=== PATIENT | male | born 1960 | race Caucasian/White ===

== ENCOUNTER 2018-03-11 06:49 | Day surgery (SDC) | payer BC ==
[2018-03-11] MEDS ORDERED: Lactated Ringers 1,000 ML IV SCH (07:00)
[2018-03-11] MEDS ORDERED: Propofol 200 MG/20 ML SDV ONE (07:49)
[2018-03-11] MEDS ORDERED: fentaNYL 100 MCG/2 ML SDV ONE (07:49)
[2018-03-11] MEDS ORDERED: Midazolam 1 MG/ML 2 ML SDV ONE (07:49)
--- NOTE | 2018-03-14 07:36 | OR ---
DATE OF PROCEDURE: 03/11/2018 PREOPERATIVE DIAGNOSIS: Colon cancer screening. POSTOPERATIVE DIAGNOSIS: Distal rectal polyp. PROCEDURE PERFORMED: Colonoscopy to the cecum with biopsy and then snare cautery polypectomy of distal rectal polyp. SURGEON: Mukund Mata MD. ANESTHESIA: IV anesthesia with monitored anesthesia care. INDICATION: This 57-year-old white male is referred for a colonoscopy for colon cancer screening. He has never had a colonoscopic exam. He does admit to having some blood in his stool. I counseled him for a colonoscopy with possible biopsy and/or polypectomy, including risks and alternatives, and he gave his informed consent to proceed. DESCRIPTION OF PROCEDURE: The patient was placed in the left lateral decubitus position. IV anesthesia was administered by the Anesthesia Service. Time-out was held. A rectal exam was performed, where a mobile mass was palpable. The flexible video Olympus colonoscope was introduced through his anus, up his rectum, out his colon all the way to the cecum. Once the cecum was reached, the scope was slowly withdrawn examining the mucosa throughout. No mucosal abnormalities were noted. The scope was retroflexed in the rectum with the distal rectum showing this mass in the distal rectum right at the anus. This was removed using the snare and initially we biopsied it, and then the snare was passed about its base to take it out in total of 3 pieces. Electrocautery was applied as we amputated the polyp. The scope was straightened. We removed 2 of the pieces from the rectum once they were amputated by aspirating them up on the endoscope and removed the endoscope with the polyp retrieved from the endoscope. The third segment was removed by aspirating up through the scope and capturing it in a polyp trap. The scope was then removed. He tolerated the procedure well. Mukund Mata MD /[id number]
== END 2018-03-11 10:15 | disposition home or self-care (01) ==
LOC: JP.SDS 06:49
PROVIDERS: ATTEND Surgery
DX: C19 Malignant neoplasm of rectosigmoid junction (principal); I10 Essential (primary) hypertension; E11.9 Type 2 diabetes mellitus without complications; J45.909 Unspecified asthma, uncomplicated; Z88.0 Allergy status to penicillin
CPT/HCPCS: 45385; 88305; 88341; 88342; J2250; J2704; J3010; J7120

== ENCOUNTER 2019-02-07 02:33 | Emergency (ER) | payer BC ==
--- NOTE | 2019-02-07 02:59 | EDM.PDOC ---
ED HPI GENERAL MEDICAL PROBLEM - General Chief Complaint: Abdominal Pain Stated Complaint: ABD PAIN Time Seen by Provider: 02/07/19 02:53 Source of Information: Reports: Patient History Limitations: Reports: No Limitations - History of Present Illness INITIAL COMMENTS - FREE TEXT/NARRATIVE: 58-year-old male in with left lower quadrant pain for the past 2 days, was supposed to see the surgeon yesterday but the surgeon canceled his appointment. There was suspicious of a hernia. No fevers or chills. He has a history of colorectal cancer which according to the patient was removed and colonoscopy. Apparently he is getting IV antibiotics for osteomyelitis at this time and no chemotherapy. No workup was done on this pain. It radiates around to his back on the left side. No urinary symptoms. Onset: Gradual Duration: Day(s): (Worse the last 2-3 days) Location: Reports: Abdomen Worsens with: Reports: Movement Associated Symptoms: Reports: Shortness of Breath (Intermittent shortness of breath). Denies: Cough LLQ Pain Score (Numeric/FACES): 9 - Related Data Allergies Allergy/AdvReac Type Severity Reaction Status Date / Time Penicillins Allergy Other Verified 02/07/19 02:41 Home Meds: Home Meds Albuterol [Ventolin HFA] 2 puff INH Q4HR PRN 03/09/18 [History] Bee Pollen 550 mg PO DAILY 03/09/18 [History] Multivitamin [Multi-Vitamin Daily] 1 each PO DAILY 03/09/18 [History] metFORMIN HCl [Metformin HCl] 1,000 mg PO BID 03/09/18 [History] Fexofenadine HCl 180 mg PO DAILY 03/11/18 [History] Apixaban [Eliquis] 5 mg PO BID 01/24/19 [History] Cholecalciferol (Vitamin D3) [Vitamin D3] 10,000 unit PO DAILY 01/24/19 [History ] Gentamicin [Garamycin 0.3% Ophth Soln] 1 drop EYEBOTH Q4HR 01/24/19 [History] Insulin Glarg,Human.Rec.Analog [Lantus Solostar] 10 unit SQ BEDTIME 01/24/19 [ History] Loperamide [Imodium AD] 2 mg PO ASDIRECTED 01/24/19 [History] Magnesium Oxide 500 mg PO TID 01/24/19 [History] Mometasone/Formoterol [Dulera 200 MCG/5 MCG] 2 puff INH BID 01/24/19 [History] Prochlorperazine Maleate [Compazine] 10 mg PO QID PRN 01/24/19 [History] traMADol [Ultram] 50 mg PO Q6HR PRN 01/24/19 [History] Past Medical History HEENT History: Reports: Allergic Rhinitis Cardiovascular History: Reports: Blood Clots/VTE/DVT, Hypertension Respiratory History: Reports: Asthma Gastrointestinal History: Reports: Other (See Below) Other Gastrointestinal History: severe protein calorie malnutrition. 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 tendon rupture, nontraumatic, extensor Neurological History: Reports: Headaches, Chronic Endocrine/Metabolic History: Reports: Diabetes, Type II, Other (See Below) Other Endocrine/Metabolic History: dyslipidemia Hematologic History: Reports: Anticoagulation Therapy Immunologic History: Reports: Other (See Below) Other Immunologic History: chemo pt Oncologic (Cancer) History: Reports: Colon - Infectious Disease History Infectious Disease History: Reports: Other (See Below) Other Infectious Disease History: MSSA of right middle finger, amputated - Past Surgical History HEENT Surgical History: Reports: None Cardiovascular Surgical History: Reports: None Respiratory Surgical History: Reports: None Neurological Surgical History: Reports: None Musculoskeletal Surgical History: Reports: Amputation, Arthroscopic Knee, Other (See Below) Other Musculoskeletal Surgeries/Procedures:: right middle finger amputation Social & Family History - Tobacco Use Smoking Status *Q: Former Smoker Used Tobacco, but Quit: Yes Month/Year Tobacco Last Used: 2003 - Caffeine Use Caffeine Use: Reports: Soda - Alcohol Use Days Per Week of Alcohol Use: 5 Number of Drinks Per Day: 2 Total Drinks Per Week: 10 - Recreational Drug Use Recreational Drug Use: No ED ROS GENERAL - Review of Systems Review Of Systems: See Below Constitutional: Reports: Malaise. Denies: Fever, Chills HEENT: Reports: No Symptoms Respiratory: Reports: Shortness of Breath Cardiovascular: Denies: Chest Pain GI/Abdominal: Reports: Abdominal Pain, Nausea. Denies: Vomiting : Reports: No Symptoms Skin: Reports: No Symptoms Neurological: Reports: No Symptoms ED EXAM, GI/ABD - Physical Exam Exam: See Below Exam Limited By: No Limitations General Appearance: Alert, No Apparent Distress Eyes: Bilateral: Normal Appearance (No jaundice) Head: Atraumatic Respiratory/Chest: No Respiratory Distress Cardiovascular: Regular Rate, Rhythm GI/Abdominal Exam: Soft, Tender (Tender in the left lower quadrant but no significant guarding or rebound) Extremities: Other (Middle finger on his right hand is bandaged, recent surgery for osteomyelitis and undergoing IV antibiotics). No: Pedal Edema Neurological: Alert, Oriented Course - Vital Signs Last Recorded V/S: Last Vital Signs Temp 97.3 F 02/07/19 02:47 Pulse 98 02/07/19 06:18 Resp 15 02/07/19 06:18 BP 169/104 H 02/07/19 06:18 Pulse Ox 98 02/07/19 06:18 - Orders/Labs/Meds Labs: Laboratory Tests 02/07/19 02/07/19 Range/Units 03:14 03:14 WBC 4.9 (4.5-11.0) K/uL RBC 3.57 L (4.30-5.90) M/uL Hgb 10.2 L (12.0-15.0) g/dL Hct 33.0 L (40.0-54.0) % MCV 92 (80-98) fL MCH 29 (27-31) pg MCHC 31 L (32-36) % Plt Count 144 L (150-400) K/uL Neut % (Auto) 59 (36-66) % Lymph % (Auto) 24 (24-44) % [place] % (Auto) 11 H (2-6) % Eos % (Auto) 6 H (2-4) % Baso % (Auto) 0 (0-1) % Sodium 143 (140-148) mmol/L Potassium 4.4 (3.6-5.2) mmol/L Chloride 108 (100-108) mmol/L Carbon Dioxide 24 (21-32) mmol/L Anion Gap 10.7 (5.0-14.0) mmol/L BUN 11 (7-18) mg/dL Creatinine 0.9 (0.8-1.3) mg/dL Est Cr Clr Drug Dosing 87.18 mL/min Estimated GFR (MDRD) > 60 (>60) Glucose 93 (74-106) mg/dL Calcium 8.8 (8.5-10.1) mg/dL Total Bilirubin 0.2 (0.2-1.0) mg/dL AST 35 (15-37) U/L ALT 24 (12-78) U/L Alkaline Phosphatase 108 (46-116) U/L Total Protein 6.0 L (6.4-8.2) g/dL Albumin 2.5 L (3.4-5.0) g/dL Globulin 3.5 (2.3-3.5) g/dL Albumin/Globulin Ratio 0.7 L (1.2-2.2) Meds: Medications Discontinued Medications Generic Name Dose Route Start Last Admin Trade Name Freq PRN Reason Stop Dose Admin Hydromorphone HCl 0.5 mg 02/07/19 04:13 02/07/19 04:18 Dilaudid IVPUSH 02/07/19 04:14 0.5 mg ONETIME ONE Administration Hydromorphone HCl 0.5 mg 02/07/19 06:06 02/07/19 06:17 Dilaudid IVPUSH 02/07/19 06:07 0.5 mg ONETIME ONE Administration Sodium Chloride 100 mls @ 3.5 mls/sec 02/07/19 03:43 02/07/19 03:54 Normal Saline IV 02/07/19 03:44 3.5 mls/sec ASDIRECTED STA Administration Iopamidol 100 ml 02/07/19 03:42 02/07/19 03:54 Isovue-300 (61%) IV 02/07/19 03:43 100 ml . DIRECTED STA Administration Ondansetron HCl 4 mg 02/07/19 06:06 02/07/19 06:16 Zofran IVPUSH 02/07/19 06:07 4 mg ONETIME ONE Administration - Re-Assessments/Exams Free Text/Narrative Re-Assessment/Exam: 02/07/19 03:03 CBC and CMP were obtained, and an abdomen pelvis CT with contrast ordered. 02/07/19 05:23 Hemoglobin is 10.2, white cell count normal. This extended chemistry profile is also very normal other than a low protein, however the CT scan done with IV contrast showed significant ascites possibly from metastatic disease. Is also showing an irregular lesion on the right kidney. He was uncomfortable enough to need IV Dilaudid for pain control. I called [facility] in [place] who was working with this patient and his cancer to see if they could see him to assess him due to his rapid decline. 02/07/19 05:[address] Jay, hospitalist at [facility] and he accepted the patient at 5:30 AM. He will be transferred by EMS. 02/07/19 05:[address] scan was pushed through to [facility]. Departure - Departure Time of Disposition: 07:27 Disposition: DC/Tfer to Other Clinical Impression: Metastatic adenocarcinoma Abdominal pain Qualifiers: Abdominal location: lower abdomen, unspecified Qualified Code(s): R10.30 - Lower abdominal pain, unspecified - Discharge Information Referrals: PCP,None [Primary Care Provider] - Forms: ED Department Discharge Care Plan Goals: Patient was treated transferred to [facility] for an oncology and gastroenterology consultation and updated care because of rapidly declining physical status.
[2019-02-07] MEDS ORDERED: Iopamidol 612 MG/ML 100 ML Bottle IV STA (03:42)
[2019-02-07] MEDS ORDERED: Sodium Chloride 0.9% 100 ML IV STA (03:43)
[2019-02-07] MEDS ORDERED: HYDROmorphone 0.5 MG/0.5 ML Syringe IVPUSH ONE ×2 (04:13→06:06)
--- NOTE | 2019-02-07 05:05 | CRLCT ---
INDICATION: Left lower quadrant pain. History of colorectal cancer. TECHNIQUE: Contiguous axial images were acquired through the abdomen and pelvis after the intravenous administration of contrast with sagittal and coronal reconstructions. COMPARISON: None available. FINDINGS: Lower chest: Heart size is normal. Trace pericardial effusion. Tip of a catheter is seen in the lower SVC. Old healed granulomatous disease. Indeterminate 3 mm noncalcified pulmonary nodules in the right lung on image 3, and in the left lung on image 2. Trace bilateral pleural effusions, right greater the left, with associated bibasilar atelectasis. Abdomen and pelvis: There are no appreciable intrahepatic lesions. There appear to be a few tiny gallstones in the fundus of the gallbladder. No gallbladder wall thickening. No abnormal bile duct dilatation. Spleen is mildly enlarged measuring 14 cm. Pancreas is unremarkable. Indeterminate 2.2 cm right adrenal lesion. Left adrenal gland is unremarkable. 5.9 cm cyst right kidney. 2.2 cm cyst left kidney. Duplicated left renal collecting system. No hydronephrosis. Mild atherosclerotic changes. Normal caliber abdominal aorta. There is no significantly dilated bowel to suggest obstruction. There appears to be a normal appendix. No free air. Small to moderate amount of ascites. No appreciable omental or peritoneal mass. Question mild nodularity of the peritoneal surfaces. Moderate thickening of the urinary bladder wall is noted. The prostate does not appear to be significantly enlarged. There is a fat and fluid containing left inguinal hernia. No significantly enlarged intra abdominal lymph nodes. There are few mildly enlarged pelvic and inguinal lymph nodes. For example, a lymph node in the right side of pelvis on axial image 140 has a short axis diameter of 1.1 cm, and a right inguinal lymph node on axial image 162 has a short axis diameter of 1.4 cm. Diffuse body wall edema. Bones: No acute abnormality. No suspicious lesions. IMPRESSION: 1. There is a moderate size left inguinal hernia which contains both fat and a small amount of fluid. No bowel is seen within the hernia. 2. Findings suggesting 3rd spacing of fluid with a trace pericardial effusion, trace bilateral pleural effusions (right greater the left), a moderate amount of ascites and body wall edema. Given the patient`s history of colorectal cancer, the possibility of malignant ascites is not excluded. 3. Indeterminate 3 mm noncalcified pulmonary nodules seen in both lung bases. Comparison with prior studies is recommended. 4. Cholelithiasis without CT evidence of acute cholecystitis. 5. Indeterminate right adrenal lesion. Comparison with priors is recommended. 6. Bilateral renal cysts. 7. Nonspecific urinary bladder wall thickening. This could potentially related to chronic bladder outlet obstruction or cystitis. Clinically correlate. 8. Mildly enlarged pelvic and inguinal lymph nodes. These are indeterminate. This could be reactive. Metastatic disease is not excluded. Comparison with priors is recommended. Dictated by Darin Devine MD @ 02/07/2019 5:03:30 AM Please note that all CT scans at this facility use dose modulation, iterative reconstruction, and/or weight-based dosing when appropriate to reduce radiation dose to as low as reasonably achievable. Dictated by: Darin Devine MD @ 02/07/2019 05:03:36 (Electronically Signed)
[2019-02-07] MEDS ORDERED: Ondansetron 4 MG/2 ML SDV IVPUSH ONE (06:06)
--- OUTSIDE RECORDS SUMMARY | 2019-02-10 08:14 | XMSREPORT ---
:1960 Author Organization [facility] Address [address] [place] [address] [address] [place] [address] Care Team Providers Name Role Phone Provider, No Attributed RESOURCE Attributed Provider Unavailable Reid Barrera MD Unavailable Pcp, No MD Primary Care Provider Unavailable Elier Tamayo MD Primary Care Provider Reason for Referral [facility] (Routine) Status Reason Specialty Diagnoses / Referred By Referred To Procedures Contact Contact New Request Gastroenterology Diagnoses Cirrhosis of liver with ascites, unspecified hepatic cirrhosis type (HCC) Irving Montero [facility] Bassem [address] [place] [address] [address] Phone: ROSARIOREHANA FERRARA [phone] Phone: Scheduling Instructions This is an electronic referral. Reason for Visit Auth/Cert Status Reason Specialty Diagnoses / Procedures Referred By Contact Referred To Contact Encounter Details Date Type Department Care Team Description 02/07/2019 - Hospital Encounter [facility] Provider, Generic Hosp Procedure Controlled type 2 02/09/2019 Center 7S Bassem Montero MD [address], [place] [id number] diabetes mellitus [address] Ileana Jay MD [address] [place] [address] [place] [address] complication, without long-term current use of insulin (HCC) Allergies Active Allergy Reactions Severity Noted Date Comments Penicillin Anaphylaxis (High) High 10/21/2015 documented as of this encounter (statuses as of 02/09/2019) Medications Medication Sig Dispensed Refills Start End Status Date Date ALBUTEROL (VENTOLIN Inhale 2 puffs 4 10/12/19 Active BRAND) 108 mcg (90 orally Every 4 16 base) act HFA hours as needed inhaler for shortness of breath BEE POLLEN PO Take 500 mg by 0 Active mouth 1 time per day MULTIPLE VITAMINS PO Take by mouth 1 0 Active time per day metFORMIN Take 500 mg by 0 Active (GLUCOPHAGE) 500 MG mouth 2 times a tablet day with meals VITAMIN D, Take 10,000 Int'l 0 Active ERGOCALCIFEROL, PO Units by mouth 1 time per day fexofenadine Take 1 tablet by 0 Active (THOM) 180 mg mouth 1 time a tablet day as needed for other (Specify) clindamycin Apply topically 2 180 g 4 06/28/20 Active (CLEOCIN-T) 1 % times a day 18 019 gelIndications: Drug-induced skin rash traMADol (ULTRAM) 50 Take 1 tablet (50 60 tablet 0 11/03/19 Active mg mg) by mouth 19 tabletIndications: every 6 hours as Rectal cancer needed for metastasized to moderate pain intrapelvic lymph node (HCC), Cancer related pain triamcinolone Apply topically 2 80 g 3 11/03/19 Active acetonide times a day as 19 (KENALOG,ARISTOCORT) needed for rash 0.1 % creamIndications: Papular rash, generalized gentamicin Place 1 drop into 1 Bottle 0 12/01/19 Active (GENOPTIC) 0.3 % both eyes Every 4 19 ophthalmic hours solutionIndications: Acute conjunctivitis of left eye, unspecified acute conjunctivitis type dexamethasone Take 2 tablets by 4 tablet 5 12/01/19 Active (DECADRON) 4 mg mouth 1 time per 19 tablet day with food on days 2 and 3 after chemotherapy. prochlorperazine Take 1 tablet (10 50 tablet 3 12/01/19 Active (COMPAZINE) 10 mg mg) by mouth 4 19 tablet times a day as needed for nausea or vomiting loperamide (IMODIUM) Take 2 caps after 100 capsule 3 12/01/19 Active 2 mg capsule the first loose 19 stool, then 1 cap after each loose stool, but no more than 8 caps in 24 hours. ELIQUIS 5 MG TAKE 1 TABLET BY 60 tablet 1 12/07/19 Active tabletIndications: MOUTH EVERY 12 19 Acute deep vein HOURS thrombosis (DVT) of proximal vein of left lower extremity (HCC) magnesium oxide 250 TAKE 2 150 tablet 0 12/30/19 Active mg TABLETS(500 MG) 19 tabletIndications: BY MOUTH THREE Rectal cancer TIMES DAILY metastasized to intrapelvic lymph node (HCC), Hypomagnesemia HYDROcodone-acetamin Take 1-2 tablets 0 01/21/20 Active ophen (NORCO) 5-325 by mouth Every 4 19 mg tablet hours as needed insulin glargine Inject 10 Units 0 01/21/20 Active (LANTUS SOLOSTARE) subcutaneously 19 subcutaneous every night at injection solution bedtime (pen) mometasone-formotero Inhale 2 puffs 0 02/01/20 Active l (DULERA) 200-5 orally 2 times a 19 mcg/puff inhaler day cefTRIAXone Administer 2,000 100 mL 0 02/10/20 Active (ROCEPHIN) 2000 mg intravenously 19 mg/20 mL IV syringe Every 24 hours in sterile Indications: Bone waterIndications: and/or Joint Bone and/or Joint Infection Infection furosemide (LASIX) Take 1 tablet (40 180 tablet 4 02/10/20 Active 40 mg mg) by mouth two tabletIndications: times a day (in Cirrhosis of liver the morning and with ascites, mid-afternoon). unspecified hepatic cirrhosis type (HCC) metoprolol tartrate Take 1 tablet (50 180 tablet 4 02/10/20 Active (LOPRESSOR) 50 mg mg) by mouth 2 tabletIndications: times a day Essential hypertension spironolactone Take 1 tablet (50 90 tablet 4 02/10/20 Active (ALDACTONE) 50 mg mg) by mouth 1 020 tabletIndications: time per day Cirrhosis of liver with ascites, unspecified hepatic cirrhosis type (HCC) amLODIPine (NORVASC) Take 10 mg by 4 10/12/19 Discontinued 5 mg tablet mouth 1 time per day doxycycline Take 1 capsule 60 capsule 1 11/03/19 Discontinued (VIBRAMYCIN) 100 mg (100 mg) by mouth capsuleIndications: Every 12 hours Papular rash, generalized ciprofloxacin Take 1 tablet 14 tablet 0 12/09/19 Discontinued (CIPRO) 500 mg (500 mg) by mouth 19 019 tabletIndications: 2 times a day Pneumonia of lower lobe due to infectious organism, unspecified laterality (HCC) levoFLOXacin Take 1 tablet 5 tablet 0 12/15/19 Discontinued (LEVAQUIN) 750 mg (750 mg) by mouth 19 019 tabletIndications: 1 time per day Pneumonia due to For 5 days. infectious organism, unspecified laterality, unspecified part of lung naproxen (NAPROSYN) Take 500 mg by 0 02/01/20 Discontinued 500 mg tablet mouth Every 12 19 019 hours as needed documented as of this encounter (statuses as of 02/09/2019) Active Problems Problem Noted Date Portal hypertension 02/09/2019 Cirrhosis of liver with ascites 02/09/2019 Left lower quadrant pain 02/07/2019 Anasarca 02/07/2019 Fluid overload 02/07/2019 Malignant ascites 02/07/2019 Chronic deep vein thrombosis (DVT) of proximal vein of left lower 12/28/2018 extremity Hypomagnesemia 09/21/2018 Acute deep vein thrombosis (DVT) of proximal vein of left lower extremity Controlled type 2 diabetes mellitus without complication, without 05/04/2018 long-term current use of insulin Rectal cancer metastasized to intrapelvic lymph node 05/04/2018 Essential hypertension 05/04/2018 Arthritis 05/21/2016 Overview: Left thumb MPJ arthritis Tendon rupture, nontraumatic, extensor 10/21/2015 Overview: Left thumb EPL documented as of this encounter (statuses as of 02/09/2019) Immunizations Name Dates Previously Given Next Due FLU VACCINE SINGLE 07/26/2018 DOSE(3YR+Fluzone,6MO+Flulaval/Fluarix,5YR+Afluria) documented as of this encounter Social History Tobacco Use Types Packs/Day Years Used Date Former Smoker 2 25 Quit: 11/21/2003 Smokeless Tobacco: Never Used Alcohol Use Drinks/Week oz/Week Comments Yes 2 Cans of beer 1.2 1 case of beer a week Sex Assigned at Date Recorded Not on file Job Start Date Occupation Industry Not on file Not on file Not on file Travel History Travel Start Travel End No recent travel history available. documented as of this encounter Last Filed Vital Signs Vital Sign Reading Time Taken Blood Pressure 149/108 02/09/2019 12:08 PM CDT Pulse 85 02/09/2019 12:08 PM CDT Temperature 36.4 C (97.6 F) 02/09/2019 12:08 PM CDT Respiratory Rate 20 02/09/2019 12:08 PM CDT Oxygen Saturation 91% 02/09/2019 12:08 PM CDT Inhaled Oxygen Concentration - - Weight 73.9 kg (163 lb) 02/09/2019 6:13 AM CDT Height 171.5 cm (5' 7.5") 02/07/2019 9:13 AM CDT Body Mass Index 25.15 02/07/2019 9:13 AM CDT documented in this encounter Functional Status Functional Status Response Date of Assessment Is the person deaf or does he/she have serious difficulty No 02/07/2019 hearing? Is this person blind or does he/she have difficulty No 02/07/2019 seeing even when wearing glasses? Do you have difficulty with walking, balance, climbing Yes 02/07/2019 stairs, or had a fall in the last 3 months? Does the patient have difficulty dressing or bathing? Yes 02/07/2019 Because of a physical, mental, or emotional condition; No 02/07/2019 does this person have difficulty doing errands alone such as visiting a doctor's office or shopping? Cognitive Status Response Date of Assessment Because of a physical, mental, or emotional condition; No 02/07/2019 does this person have serious difficulty concentrating, remembering, or making decisions? documented as of this encounter Discharge Summaries Not on filedocumented in this encounter Medications at Time of Discharge Medication Sig Dispensed Refills Start Date End Date cefTRIAXone (ROCEPHIN) Administer 2,000 mg 100 mL 0 02/09/2019 2000 mg/20 mL IV intravenously Every syringe in sterile 24 hours Indications: waterIndications: Bone Bone and/or Joint and/or Joint Infection Infection furosemide (LASIX) 40 Take 1 tablet (40 mg) 180 tablet 4 02/09/20192019 mg tabletIndications: by mouth two times a Cirrhosis of liver with day (in the morning ascites, unspecified and mid-afternoon). hepatic cirrhosis type (HCC) metoprolol tartrate Take 1 tablet (50 mg) 180 tablet 4 02/09/20192019 (LOPRESSOR) 50 mg by mouth 2 times a tabletIndications: day Essential hypertension HYDROcodone-acetaminoph Take 1-2 tablets by 0 01/20/2019 en (NORCO) 5-325 mg mouth Every 4 hours tablet as needed insulin glargine Inject 10 Units 0 01/20/2019 (LANTUS SOLOSTARE) subcutaneously every subcutaneous injection night at bedtime solution (pen) mometasone-formoterol Inhale 2 puffs orally 0 01/31/2019 (DULERA) 200-5 mcg/puff 2 times a day inhaler magnesium oxide 250 mg TAKE 2 TABLETS(500 150 tablet 0 12/29/2018 tabletIndications: MG) BY MOUTH THREE Rectal cancer TIMES DAILY metastasized to intrapelvic lymph node (HCC), Hypomagnesemia ELIQUIS 5 MG TAKE 1 TABLET BY 60 tablet 1 12/06/2018 tabletIndications: MOUTH EVERY 12 HOURS Acute deep vein thrombosis (DVT) of proximal vein of left lower extremity (HCC) gentamicin (GENOPTIC) Place 1 drop into 1 Bottle 0 11/30/2018 0.3 % ophthalmic both eyes Every 4 solutionIndications: hours Acute conjunctivitis of left eye, unspecified acute conjunctivitis type dexamethasone Take 2 tablets by 4 tablet 5 11/30/2018 (DECADRON) 4 mg tablet mouth 1 time per day with food on days 2 and 3 after chemotherapy. prochlorperazine Take 1 tablet (10 mg) 50 tablet 3 11/30/2018 (COMPAZINE) 10 mg by mouth 4 times a tablet day as needed for nausea or vomiting loperamide (IMODIUM) 2 Take 2 caps after the 100 capsule 3 11/30/2018 mg capsule first loose stool, then 1 cap after each loose stool, but no more than 8 caps in 24 hours. traMADol (ULTRAM) 50 mg Take 1 tablet (50 mg) 60 tablet 0 11/02/2018 tabletIndications: by mouth every 6 Rectal cancer hours as needed for metastasized to moderate pain intrapelvic lymph node (HCC), Cancer related pain triamcinolone acetonide Apply topically 2 80 g 3 11/02/2018 (KENALOG,ARISTOCORT) times a day as needed 0.1 % creamIndications: for rash Papular rash, generalized clindamycin (CLEOCIN-T) Apply topically 2 180 g 4 06/28/2018 07/03/2019 1 % gelIndications: times a day Drug-induced skin rash VITAMIN D, Take 10,000 Int'l 0 ERGOCALCIFEROL, PO Units by mouth 1 time per day fexofenadine (THOM) Take 1 tablet by 0 180 mg tablet mouth 1 time a day as needed for other (Specify) BEE POLLEN PO Take 500 mg by mouth 0 1 time per day MULTIPLE VITAMINS PO Take by mouth 1 time 0 per day metFORMIN (GLUCOPHAGE) Take 500 mg by mouth 0 500 MG tablet 2 times a day with meals ALBUTEROL (VENTOLIN Inhale 2 puffs orally 4 10/12/2015 BRAND) 108 mcg (90 Every 4 hours as base) act HFA inhaler needed for shortness of breath spironolactone Take 1 tablet (50 mg) 90 tablet 4 02/09/2019 02/14/2020 (ALDACTONE) 50 mg by mouth 1 time per tabletIndications: day Cirrhosis of liver with ascites, unspecified hepatic cirrhosis type (HCC) documented as of this encounter Progress Notes Anthony Hopkins MD - 02/09/2019 1:02 PM CDT 02/09/2019 Hematology/Oncology Daily Progress Note Ismael Enrique is a 58yr old male admitted on 02/07/2019 9:07 AM. 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 Plan: Ismael was admitted for abdominal pain which was attributed to significant worsening ascites. He underwent abdominal paracentesis with 1 L of abdominal fluid removed. Cytology is pending. He continuedto have worsening ascites. We obtained an abdominal ultrasound today. It shows cirrhosis and portal hypertension. This was not reported earlier. He is feeling well. Cytology report is still pending. I will start him back on chemotherapy next week. Discussed with the patient about discharge planning and plan to start chemotherapy again. Discussed with his hospitalist about post hospital follow- up plan and planned treatment with chemotherapy. Total time over 35 min spent with the patient. More than 50% of time spent in counseling, coordinating care, discussion of current status, labs/scans and plan of therapy. Interval History He still has abdominal distention. This has not improved. Cytology report from acetic fluid is pending. Hospitalist service recommended to obtain an ultrasound. Ultrasound of the abdomen shows cirrhosis of liver with portal hypertension and splenomegaly. Patient is otherwise comfortable and has No new complaints. No fever. No worsening cough, No worsening shortness of breath. Pain is well controlled. No abdominal pain, No nausea, No vomiting, No diarrhea. Eating well. Slept well. No bleeding. No other significant complaints. Other review of systems unremarkable Medications Current Facility-Administered Medications Medication Dose Route Frequency Provider Last Rate Last Dose labetalol (NORMODYNE;TRANDATE) IV solution 20 mg 20 mg IV Every 4 hours prn India Rosenberg APRN-CNP hydrALAZINE (APRESOLINE) injection solution 10 mg 10 mg IV Every 4 hours prn India Rosenberg APRN-CNP metoprolol tartrate (LOPRESSOR) tablet 50 mg 50 mg Oral 2 times a day Bassem Montero MD furosemide (LASIX) tablet 40 mg 40 mg Oral 2 times a day diuretic Bassem Montero MD 40 mg at 02/09/19 0810 apixaban (ELIQUIS) tablet 5 mg 5 mg Oral Every 12 hours Bassem Montero MD 5 mg at02/09/19 0810 sodium chloride 0.9% flush (adult) 10 mL 10 mL IV 2 times a day and prn Bradford Barrow MD 10 mL at 02/09/19 0805 acetaminophen (TYLENOL) tablet 650 mg 650 mg Oral Every 4 hours prn Bradford Barrow MD albuterol (PROVENTIL) (2.5 mg/3mL) 0.083% inhalation soln 2.5 mg 1 unit- dose Nebulization Every6 hours prn Bassem Montero MD loratadine (CLARITIN) tablet 10 mg 10 mg Oral 1 time a day prn Bassem Montero MD insulin glargine (LANTUS) SQ injection 10 Units Subcutaneous at bedtime Bassem Montero MD 10 Units at 02/08/192038 loperamide (IMODIUM) capsule 2 mg 2 mg Oral Every 1 hour prn Bassem Montero MD magnesium oxide tablet 250 mg 250 mg Oral 2 times a day Bassem Montero MD 250 mg at 02/09/19 0810 fluticasone-vilanterol (BREO ELLIPTA) 200-25 mcg/puff inhaler 1 puff 1 puff Inhalation Daily Bassem Montero MD 1 puff at 02/09/19 08 triamcinolone acetonide (KENALOG,ARISTOCORT) 0.1 % cream Apply externally 2 times a day prn Bassem Montero MD HYDROcodone-acetaminophen (NORCO) 5-325 mg tablet 1 tablet 1 tablet Oral Every 4 hours prn Bassem Montero MD 1 tablet at 02/09/19 0810 HYDROmorphone (DILAUDID) injection solution (conc: 0.5 mg/0.5mL) 0.25 mg 0.25 mg IV Every 2 hours prn Bassem Montero MD 0.25 mg at 0528 melatonin tablet 3 mg 3 mg Oral Bedtime prn Bassem Montero MD 3 mg at 02/09/19 0054 senna-docusate sodium (SENOKOT-S;PERICOLACE) tablet 2 tablet 2 tablet Oral 2 times a day prn Bassem Montero MD And bisacodyl (DULCOLAX) suppository 10 mg 10 mg Rectal 1 time a day prn Bassem Montero MD And docusate sodium (THEREVAC-SB MINI;ENEMEEZ MINI) 283 MG enema 1 enema 1 enema Rectal 1 time a day prn Bassem Montero MD ondansetron (ZOFRAN ODT) dispersible tablet 4 mg 4 mg Oral Every 4 hours prn Bassem Montero MD 4 mg at 02/08/192035 And ondansetron (ZOFRAN) injection solution 4 mg 4 mg IV Every 4 hours prn Bassem Montero MD And metoclopramide (REGLAN) inj soln 5 mg 5 mg IV Every 8 hours prn Bassem Montero MD cefTRIAXone (ROCEPHIN) 2000 mg/20 mL IV syringe in sterile water 2,000 mg IV Every 24 hours Bassem Montero MD 2,000 mg at 02/08/19 1412 dextrose 50% IV solution 50 mL 25 g IV PRN per parameter Bassem Montero MD glucagon for injection 1 mg vial 1 mg 1 mg Intramuscular PRN per parameter Bassem Montero MD dextrose chewable tablet 16 g 4 tablet Oral PRN per parameter Bassem Montero MD Or carbohydrate 15 g 15 g Oral PRN per parameter Bassem Montero MD insulin aspart (NovoLOG) SQ correction scale (Adult) 2-8 Units Subcutaneous 3 times a day with meals Bassem Montero MD Review of Systems ENT: No mouth sores. Respiratory: no worsening cough, No worsening shortness of breath Cardiovascular: no chest pain or palpitation Gastrointestinal: no abdominal pain, no diarrhea, no constipation, No N/V Genito-Urinary: no dysuria, hematuria Extremities- no swelling or new bone pain Neurological: NO new headache, No focal weakness. Dermatological: No rash, No petechiae. Physical Exam Vital Signs: Temp: 97.6 F (36.4 C) | BP: 149/108 | Pulse: 85 | Resp: 20 | Pain Ratin (out of10) | Weight: 73.9 kg (163 lb) | O2 Device: Room Air O2 Flow Rate (L/min): 1 l/min | SpO2: 91 % Maximum Temperatures (last 24 hours) Temperature Maximum Max Temp 98.4 F (36.9 C) Vital Signs Min/Max (last 24 hours) Flowsheet Row Name Min Max Temp 97.5 F (36.4 C) 98.4 F (36.9 C) BP: Systolic 149 164 BP: Diastolic 108 118 Pulse 85 99 Resp 18 20 SpO2 91 % 99 % O2 Flow Rate (L/min) 1 l/min 1 l/min MAP (mm Hg) 126 mm Hg 131 mm Hg Intake and Output: 02/08 0700 - 02/09 0659 In: 1620 [Oral:1620] Out: 2049 [Urine:2049] General Appearance: alert,and in no distress Eyes: sclera anicteric HENT: no oral sores or thrush noted. Neck: supple, Lungs: no rales or rhonchi, equal air entry on both sides Heart: normal rate, normal S1, S2 Abdomen: soft, nontender, +distended, ascites. Neurological: alert, oriented, no focal deficit Mental Status: normal mood, behavior Extremities: no pedal edema, Skin: no rashes, Labs Recent Labs 02/08/19 0517 02/09/19 0513 WBC 4.8 5.4 HEMOGLOBIN 10.4* 10.8* HEMATOCRIT 32.8* 33.6* PLTCOUNT 131* 142 NEUTROABS 3.2 3.4 Recent Labs 02/08/19 0517 02/09/19 0513 02/09/19 0818 02/09/19 1204 GLUCOSE 85 < > 98 88 188* BUN 12 -- 14 -- -- CREATSERUM 0.81 -- 0.89 -- -- NA 138 -- 137 -- -- POTASSIUM 4.5 -- 4.8 -- -- CL 107 -- 106 -- -- CO2 28 -- 26 -- -- CA 8.9 -- 9.1 -- -- PROTEINTOTAL 5.4* -- 6.0 -- -- ALBUMIN 2.9* -- 3.2* -- -- ALKPHOS 91 -- 94 -- -- AST 27 -- 27 -- -- ALT 13 -- 13 -- -- BILITOTAL 0.2 -- 0.2 -- -- < >=values in this interval not displayed. US ABDOMEN DOPPLER COMPLETE Patient Name: ISMAEL ENRIQUE Date of : 1960 Procedure: US ABDOMEN DOPPLER COMPLETE Date of Service: 02/09/2019 EXAM: US ABDOMEN DOPPLER COMPLETE INDICATION: 58 yo male with ascites, anasarca. wants to see cirrhosis of liver. TECHNIQUE: Ultrasound abdomen Doppler complete. Color and spectral duplex images obtained, stored and reviewed. These include color flow and spectral doppler analysis. COMPARISON(S): CT dated 11/29/2018 FINDINGS: Mild heterogeneity of the hepatic parenchyma with nodular surface contour likely representing chronic hepatocellular disease/cirrhosis. There is hepatopedal flow within the portal veins and splenic vein. Hepatic artery resistive index is mildly elevated at 0.73 with a peak systolic velocity of 59 cm/s. Flow in the hepatic veins and IVC is phasic. Main portal vein diameter 1.5 cm. Spleen is enlarged at 15.1 x 5 x 14.2 cm. There is upper abdominal ascites. Gallbladder wall is thickened at 5 mm which can be reactive to ascites , liver disease, cardiac disease or renal disease. Probable sludgewithin the gallbladder. IMPRESSION: 1. Heterogeneous hepatic parenchyma with nodular surface contour and mildly elevated resistive indices within the hepatic artery worrisome for chronic hepatocellular disease/cirrhosis. 2. Splenomegaly and ascites suggests elevated portal venous pressures. 3. No evidence of portal vein thrombosis. Flow in the portal system is normal in direction. 4. Gallbladder sludge. Finalized by: Chip Escobar DO on 02/09/2019 12:23 PM CDT Patient/Procedure Information: [facility] MRN/MARIA M: [id number] Order Number: [id number] Accession Number: [id number] Ordering Provider: BASSEM MONTERO Authorizing Provider: BASSEM Hopkins MD [facility] Anthony Avilez MD - 02/08/2019 3:35 PM CDT 02/08/2019 Hematology/Oncology Daily Progress Note Ismael Enrique is a 58yr old male admitted on 02/07/2019 9:07 AM. Impression / Plan Active Hospital Problems Diagnosis Date Noted Left lower quadrant pain 02/07/2019 Anasarca 02/07/2019 Fluid overload 02/07/2019 Malignant ascites 02/07/2019 Controlled type 2 diabetes mellitus without complication, without long-term current use of insulin (HCC) 05/04/2018 Rectal cancer metastasized to intrapelvic lymph node (HCC) 05/04/2018 Essential hypertension 05/04/2018 Resolved Hospital Problems No resolved problems to display. Plan: Ismael has metastatic colon cancer and was admitted for abdominal pain and ascites. He underwent abdominal paracentesis yesterday. He feels much better today. Pain has improved. We are waiting for cytology report. Continue pain medication. Most likely he has malignant ascites. Blood pressure diabetes controlled. Discussed with the patient about possibility of worsening cancer. If he does have malignant ascitesI will plan to change his treatment. Currently he is on FOLFIRI and Avastin. Previously received FOLFOX. I will plan to change it to Lonsurf if there is progressive disease. Discussed the plan withthe patient. Discussed the case with the hospitalist. Total floor time spent in patient care today was over 35 minutes over half spent in counseling coordination of care and discussing with other providers including hospitalist service. Interval History Patient has metastatic rectal cancer and now admitted for abdominal pain and ascites. We ordered abdominal paracentesis yesterday which was done. Over a liter of peritoneal fluid was removed. He is feeling somewhat better. Pain is improved. No new complaints. No fever. No worsening cough, No worsening shortness of breath. No nausea, No vomiting, No diarrhea. Eating well. Slept well. No bleeding. No other significant complaints. Otherreview of systems unremarkable Medications Current Facility-Administered Medications Medication Dose Route Frequency Provider Last Rate Last Dose sodium chloride 0.9% flush (adult) 10 mL 10 mL IV 2 times a day and prn Bradford Barrow MD 10 mL at 02/08/19 1000 acetaminophen (TYLENOL) tablet 650 mg 650 mg Oral Every 4 hours prn Bradford Barrow MD albuterol (PROVENTIL) (2.5 mg/3mL) 0.083% inhalation soln 2.5 mg 1 unit- dose Nebulization Every6 hours prn Bassem Montero MD loratadine (CLARITIN) tablet 10 mg 10 mg Oral 1 time a day prn Bassem Montero MD insulin glargine (LANTUS) SQ injection 10 Units Subcutaneous at bedtime Bassem Montero MD 10 Units at 02/07/192126 loperamide (IMODIUM) capsule 2 mg 2 mg Oral Every 1 hour prn Bassem Montero MD magnesium oxide tablet 250 mg 250 mg Oral 2 times a day Bassem Montero MD 250 mg at 02/08/19 1000 fluticasone-vilanterol (BREO ELLIPTA) 200-25 mcg/puff inhaler 1 puff 1 puff Inhalation Daily Bassem Montero MD 1 puff at 02/08/19 0847 triamcinolone acetonide (KENALOG,ARISTOCORT) 0.1 % cream Apply externally 2 times a day prn Bassem Montero MD HYDROcodone-acetaminophen (NORCO) 5-325 mg tablet 1 tablet 1 tablet Oral Every 4 hours prn Bassem Montero MD 1 tablet at 02/08/19 1454 HYDROmorphone (DILAUDID) injection solution (conc: 0.5 mg/0.5mL) 0.25 mg 0.25 mg IV Every 2 hours prn Bassem Montero MD 0.25 mg at 0528 melatonin tablet 3 mg 3 mg Oral Bedtime prn Bassem Montero MD senna-docusate sodium (SENOKOT-S;PERICOLACE) tablet 2 tablet 2 tablet Oral 2 times a day prn Bassem Montero MD And bisacodyl (DULCOLAX) suppository 10 mg 10 mg Rectal 1 time a day prn Bassem Montero MD And docusate sodium (THEREVAC-SB MINI;ENEMEEZ MINI) 283 MG enema 1 enema 1 enema Rectal 1 time a day prn Bassem Montero MD ondansetron (ZOFRAN ODT) dispersible tablet 4 mg 4 mg Oral Every 4 hours prn Bassem Montero MD And ondansetron (ZOFRAN) injection solution 4 mg 4 mg IV Every 4 hours prn Bassem Montero MD And metoclopramide (REGLAN) inj soln 5 mg 5 mg IV Every 8 hours prn Bassem Montero MD cefTRIAXone (ROCEPHIN) 2000 mg/20 mL IV syringe in sterile water 2,000 mg IV Every 24 hours Bassem Montero MD 2,000 mg at 02/08/19 1412 dextrose 50% IV solution 50 mL 25 g IV PRN per parameter Bassem Montero MD glucagon for injection 1 mg vial 1 mg 1 mg Intramuscular PRN per parameter Bassem Montero MD dextrose chewable tablet 16 g 4 tablet Oral PRN per parameter Bassem Montero MD Or carbohydrate 15 g 15 g Oral PRN per parameter Bassem Montero MD insulin aspart (NovoLOG) SQ correction scale (Adult) 2-8 Units Subcutaneous 3 times a day with meals Bassem Montero MD Review of Systems ENT: No mouth sores. Respiratory: no worsening cough, No worsening shortness of breath Cardiovascular: no chest pain or palpitation Gastrointestinal: no diarrhea, no constipation, No N/V Genito-Urinary: no dysuria, hematuria Extremities- no swelling or new bone pain Neurological: NO new headache, No focal weakness. Dermatological: No rash, No petechiae. Physical Exam Vital Signs: Temp: 98.2 F (36.8 C) | BP: 152/111 | Pulse: 95 | Resp: 16 | Pain Ratin (out of10) | Weight: 74.1 kg (163 lb 6.4 oz) | O2 Device: NC - no humidity O2 Flow Rate (L/min): 1 l/min | SpO2: 94 % Maximum Temperatures (last 24 hours) Temperature Maximum Max Temp 98.4 F (36.9 C) Vital Signs Min/Max (last 24 hours) Flowsheet Row Name Min Max Temp 97.4 F (36.3 C) 98.4 F (36.9 C) BP: Systolic 130 152 BP: Diastolic 94 114 Pulse 94 98 Resp 16 18 SpO2 89 % (Abnormal) 100 % O2 Flow Rate (L/min) 1 l/min 2 l/min MAP (mm Hg) 126 mm Hg 126 mm Hg Intake and Output: 02/07 0700 - 02/08 0659 In: 150 [Oral:150] Out: 4370 [Urine:2870] General Appearance: alert,and in no distress Eyes: sclera anicteric HENT: no oral sores or thrush noted. Neck: supple, Lungs: no rales or rhonchi, equal air entry on both sides Heart: normal rate, normal S1, S2 Abdomen: soft, nontender, +distended, +ascites Neurological: alert, oriented, no focal deficit Mental Status: normal mood, behavior Extremities: no pedal edema, Skin: no rashes, Labs Recent Labs 02/08/19 0517 WBC 4.8 HEMOGLOBIN 10.4* HEMATOCRIT 32.8* PLTCOUNT 131* NEUTROABS 3.2 Recent Labs 02/08/19 0517 02/08/19 0802 02/08/19 1207 GLUCOSE 85 87 144* BUN 12 -- -- CREATSERUM 0.81 -- -- NA 138 -- -- POTASSIUM 4.5 -- -- CL 107 -- -- CO2 28 -- -- CA 8.9 -- -- PROTEINTOTAL 5.4* -- -- ALBUMIN 2.9* -- -- ALKPHOS 91 -- -- AST 27 -- -- ALT 13 -- -- BILITOTAL 0.2 -- -- Atnhony Hopkins MD [facility] Bassem Henriquez MD - 02/08/2019 12:00 AM CDTInpatient Progress Note PROVIDER: Bassem Montero M.D., Internal Medicine LOCATION OF CARE: 7S DATE OF SERVICE: 02/08/2019 PATIENT NAME: ISMAEL ENRIQUE MR#: [id number] CSN: [id number] : 1960 SEX: M HOME: WORK: Mr. Ismael Enirque is a 58-year-old male admitted on February 08, 2012, with abdominal pain and abdominal distention. IMPRESSION AND PLAN: 1. Ascites. The serum albumin and ascitic gradient is more than 1.1, suggestive that portal hypertension is likely the cause of ascites. We will continue with oral Lasix and waiting for cytology result. If the cytology is negative, the likely cause for ascites is portal hypertension from liver etiology. Given that albumin is so low, less likely a malignant effusion, but still a possibility. 2. Left lower quadrant abdominal pain. No clear-cut etiology is identified. CT scan of the abdomen and pelvis did not show any abnormality other than hernia, which is easily reducible and nontender. 3. Hypertension. Blood pressures are elevated. Likely secondary to pain. We will start him on metoprolol 25 mg 2 times a day and see how he does. 4. Diabetes mellitus, type 2, well controlled. Blood sugars are stable. Continue with Lantus and sliding-scale insulin. 5. History of recent osteomyelitis of the right middle finger, status post amputation. Currently on IV Rocephin. We will need a total 6 weeks of IV antibiotic course. He has a PICC line in place. 6. Metastatic rectal cancer. The patient has been following up with oncology as an outpatient and getting chemotherapy. 7. History of chronic obstructive pulmonary disease, looking stable. Continue with Breo Ellipta. 8. History of DVT, on Eliquis. 9. DVT and GI prophylaxis. The patient is on full dose anticoagulation. SUBJECTIVE: The patient is feeling slightly better. The abdomen is getting distended again. Still complaining of some pain in the left flank and lower quadrant area. Otherwise, no other acute events happened overnight. REVIEW OF SYSTEMS: GENERAL: Generalized weakness. No fevers or chills. RESPIRATORY: No cough. CARDIOVASCULAR: No chest pain. GASTROINTESTINAL: As above. EXTREMITIES: Mild leg swelling. VITAL SIGNS: Reviewed. MEDICATIONS: Reviewed and adjusted. LABS AND IMAGING STUDIES: Reviewed. PHYSICAL EXAMINATION: GENERAL: The middle-aged male is seen lying comfortable in the bed, not in obvious distress. CARDIOVASCULAR: S1, S2 heard. No murmurs or gallops. LUNGS: Air entry is present on both sides. No wheezing or creps. ABDOMEN: Soft, mildly distended. Shifting dullness is appreciated. No guarding or rigidity. CENTRAL NERVOUS SYSTEM: Awake, alert, oriented to time, place, person. No focal deficits. EXTREMITIES: 1+ pedal edema noted in both the legs. DERMATOLOGIC: Warm and moist skin noted. Bassem Montero M.D., Internal Medicine Job ID/Trans ID: [id number] Doc ID: [id number] MONIUM SULFATE OPERATOR CST Robert Dorman, PHARM STUDENT - 02/07/2019 11:27 AM CDT02/07/2019 11:28 AM -- Patient was seen by the pharmacy med reconciliation team and HOME MEDICATIONS have been reconciled and updated to match the patient' s home usage. Added to med list: Dulera 200-5 mcg/puff inhaler - 2 puffs BID Lantus - Inject 10 units SubQ every night at bedtime [place] 5-325 mg tab - 1-2 every 4 hours PRN severe pain Removed on med list: Amlodipine 5 mg tab Cipro 500 mg tab Patient knew home medications well. Only unsure of antibiotics. Contacted home pharmacy. Only recentscript is doxycycline, last filled 11/02/18 for 30 day supply. Pt still has refills for this medication. Patient denies use of other inhalers, creams/ointments, eye/ear drops, patches or injectables, OTC, vitamins and/or herbal products. Robert Wong, PHARM STUDENT Electronically signed by Milena Martinez [facility] at 02/07/2019 12:42 PM CDTdocumented in this encounter Plan of Treatment Date Type Specialty Care Team Description 02/15/2019 Office Visit Oncology Anthony Hopkins MD [address] [place] [address] [phone] 02/15/2019 Appointment INFUSION Pranav Olivares MD [address] [place] [address] [phone] Name Priority Associated Diagnoses Date/Time CULTURE BACTERIAL, OTHER WITH Routine 02/07/2019 5:48 PM CDT GRAM STAIN Name Priority Associated Diagnoses Order Schedule CARCINOEMBRYONIC ANTIGEN Routine Early AM draw for labs until discontinued starting 02/08/2019, 2 completed Name Priority Associated Diagnoses Order Schedule CLINIC REFERRAL Routine Cirrhosis of liver with Ordered: 02/09/2019 GASTROENTEROLOGY ONE CHART ascites, unspecified hepatic cirrhosis type (HCC) documented as of this encounter Procedures Procedure Name Priority Date/Time Associated Comments Diagnosis GLUCOSE BY METER, POCT Routine 02/09/2019 12:04 Results for this PM CDT procedure are in the results section. US ABDOMEN DOPPLER Routine 02/09/2019 11:25 Results for this COMPLETE AM CDT procedure are in the results section. GLUCOSE BY METER, POCT Routine 02/09/2019 8:18 Results for this AM CDT procedure are in the results section. LAB ONLY-COMPLETE BLOOD Routine 02/09/2019 5:13 Results for this COUNT WITH DIFFERENTIAL AM CDT procedure are in the results section. HEPATITIS B SURFACE Routine 02/09/2019 5:13 Results for this ANTIGEN AM CDT procedure are in the results section. HEPATITIS C ANTIBODY Routine 02/09/2019 5:13 Results for this AM CDT procedure are in the results section. CARCINOEMBRYONIC ANTIGEN Routine 02/09/2019 5:13 Results for this AM CDT procedure are in the results section. COMPREHENSIVE METABOLIC Routine 02/09/2019 5:13 Results for this PANEL AM CDT procedure are in the results section. COMPLETE BLOOD COUNT Routine 02/09/2019 5:13 Results for this WITH DIFFERENTIAL AM CDT procedure are in the results section. GLUCOSE BY METER, POCT Routine 02/09/2019 12:29 Results for this AM CDT procedure are in the results section. GLUCOSE BY METER, POCT Routine 02/08/2019 8:36 Results for this PM CDT procedure are in the results section. GLUCOSE BY METER, POCT Routine 02/08/2019 5:32 Results for this PM CDT procedure are in the results section. ECHO ADULT COMPLETE Routine 02/08/2019 2:32 Results for this PM CDT procedure are in the results section. GLUCOSE BY METER, POCT Routine 02/08/2019 12:07 Results for this PM CDT procedure are in the results section. GLUCOSE BY METER, POCT Routine 02/08/2019 8:02 Results for this AM CDT procedure are in the results section. LAB ONLY-COMPLETE BLOOD Routine 02/08/2019 5:17 Results for this COUNT WITH DIFFERENTIAL AM CDT procedure are in the results section. CARCINOEMBRYONIC ANTIGEN Routine 02/08/2019 5:17 Results for this AM CDT procedure are in the results section. COMPREHENSIVE METABOLIC Routine 02/08/2019 5:17 Results for this PANEL AM CDT procedure are in the results section. COMPLETE BLOOD COUNT Routine 02/08/2019 5:17 Results for this WITH DIFFERENTIAL AM CDT procedure are in the results section. GLUCOSE BY METER, POCT Routine 02/07/2019 10:03 Results for this PM CDT procedure are in the results section. GLUCOSE BY METER, POCT Routine 02/07/2019 6:19 Results for this PM CDT procedure are in the results section. IR PARACENTESIS Routine 02/07/2019 5:50 Results for this PM CDT procedure are in the results section. CYTOLOGY-BODY Routine 02/07/2019 5:48 Results for this FLUID/OTHER PM CDT procedure are in the results section. LAB ONLY-DIFFERENTIAL, Routine 02/07/2019 5:48 Results for this BODY FLUID PM CDT procedure are in the results section. LAB ONLY-CELL COUNT, Routine 02/07/2019 5:48 Results for this BODY FLUID PM CDT procedure are in the results section. CELL COUNT AND DIFF, Routine 02/07/2019 5:48 Results for this BODY FLUID PM CDT procedure are in the results section. ALBUMIN, BODY FLUID Routine 02/07/2019 5:48 Results for this PM CDT procedure are in the results section. URINALYSIS MICROSCOPIC Routine 02/07/2019 1:36 Results for this PM CDT procedure are in the results section. URINALYSIS DIPSTICK Routine 02/07/2019 1:36 Results for this REFLEX TO MICROSCOPIC PM CDT procedure are in the results section. LACTIC ACID IDA 02/07/2019 11:05 Results for this AM CDT procedure are in the results section. BRAIN NATRIURETIC Routine 02/07/2019 11:05 Results for this PEPTIDE AM CDT procedure are in the results section. documented in this encounter Results GLUCOSE BY METER, POCT (02/09/2019 12:04 PM CDT)Only the most recent of9 resultswithin the time period is included. Glucose POC 188 (H) 70 - 100 mg/dL [facility] Specimen Blood Performing Organization Address City/State/Zipcode Phone Number [address] [address] US ABDOMEN DOPPLER COMPLETE (02/09/2019 11:25 AM CDT) Specimen Narrative Performed At [facility] Patient Name: SIMAEL ENRIQUE Date of :1960 Procedure: US ABDOMEN DOPPLER COMPLETE Date of Service: 02/09/2019 EXAM: US ABDOMEN DOPPLER COMPLETE INDICATION: 58 yo male with ascites, anasarca. wants to see cirrhosis of liver. TECHNIQUE: Ultrasound abdomen Doppler complete. Color and spectral duplex images obtained, stored and reviewed. These include color flow and spectral doppler analysis. COMPARISON(S): CT dated 11/29/2018 FINDINGS: Mild heterogeneity of the hepatic parenchyma with nodular surface contour likely representing chronic hepatocellular disease/cirrhosis. There is hepatopedal flow within the portal veins and splenic vein. Hepatic artery resistive index is mildly elevated at 0.73 with a peak systolic velocity of 59 cm/s. Flow in the hepatic veins and IVC is phasic. Main portal vein diameter 1.5 cm. Spleen is enlarged at 15.1 x 5 x 14.2 cm. There is upper abdominal ascites. Gallbladder wall is thickened at 5 mm which can be reactive to ascites, liver disease, cardiac disease or renal disease. Probable sludge within the gallbladder. IMPRESSION: 1. Heterogeneous hepatic parenchyma with nodular surface contour and mildly elevated resistive indices within the hepatic artery worrisome for chronic hepatocellular disease/cirrhosis. 2. Splenomegaly and ascites suggests elevated portal venous pressures. 3. No evidence of portal vein thrombosis. Flow in the portal system is normal in direction. 4. Gallbladder sludge. Finalized by: Chip Escobar DO on 02/09/2019 12:23 PM CDT Patient/Procedure Information: [facility] MRN/MARIA M: [id number] Order Number: [id number] Accession Number: [id number] Ordering Provider: BASSEM MONTERO Authorizing Provider: BASSEM MONTERO Procedure Note Interface, [facility] - 02/09/2019 12:25 PM CDT Patient Name: ISMAEL ENRIQUE Date of : 1960 Procedure: US ABDOMEN DOPPLER COMPLETE Date of Service: 02/09/2019 EXAM: US ABDOMEN DOPPLER COMPLETE INDICATION: 58 yo male with ascites, anasarca. wants to see cirrhosis of liver. TECHNIQUE: Ultrasound abdomen Doppler complete. Color and spectral duplex images obtained, stored and reviewed. These include color flow and spectral doppler analysis. COMPARISON(S): CT dated 11/29/2018 FINDINGS: Mild heterogeneity of the hepatic parenchyma with nodular surface contour likely representing chronic hepatocellular disease/cirrhosis. There is hepatopedal flow within the portal veins and splenic vein. Hepatic artery resistive index is mildly elevated at 0.73 with a peak systolic velocity of 59 cm/s. Flow in the hepatic veins and IVC is phasic. Main portal vein diameter 1.5 cm. Spleen is enlarged at 15.1 x 5 x 14.2 cm. There is upper abdominal ascites. Gallbladder wall is thickened at 5 mm which can be reactive to ascites, liver disease, cardiac disease or renal disease. Probable sludge within the gallbladder. IMPRESSION: 1. Heterogeneous hepatic parenchyma with nodular surface contour and mildly elevated resistive indices within the hepatic artery worrisome for chronic hepatocellular disease/cirrhosis. 2. Splenomegaly and ascites suggests elevated portal venous pressures. 3. No evidence of portal vein thrombosis. Flow in the portal system is normal in direction. 4. Gallbladder sludge. Finalized by: Chip Escobar DO on 02/09/2019 12:23 PM CDT Patient/Procedure Information: [facility] MRN/MARIA M: [id number] Order Number: [id number] Accession Number: [id number] Ordering Provider: BASSEM MONTERO Authorizing Provider: BASSEM MONTERO Performing Organization Address [facility] Phone Number [id number] HEPATITIS C ANTIBODY (02/09/2019 5:13 AM CDT) Pathologist [facility] [place] Hepatitis C Antibody NON-REACTIVE Nonreactive [facility] Specimen Blood Performing Organization Address [facility] Phone Number [address] [address] HEPATITIS B SURFACE ANTIGEN (02/09/2019 5:13 AM CDT) Pathologist [facility] [place] HBsAg Screen NON-REACTIVE Nonreactive [facility] Specimen Blood Performing Organization Address [facility] Phone Number [address] [address] LAB ONLY-COMPLETE BLOOD COUNT WITH DIFFERENTIAL (02/09/2019 5:13 AM CDT)Only the most recent of2 resultswithin the time period is included. [facility] WBC 5.4 4.0 - 11.0 K/uL [facility] RBC 3.73 (L) 4.40 - 5.80 [facility] M/uL [facility]INIC Hemoglobin 10.8 (L) 13.5 - 17.5 [facility] g/dL [facility] Hematocrit 33.6 (L) 40.0 - 50.0 % [facility] MCV 90.1 80.0 - 98.0 fL [facility] MCH 29.0 25.5 - 34.0 pg [facility] MCHC 32.1 31.5 - 36.5 [facility] g/dL [facility] RDW-CV 16.9 (H) 11.5 - 15.5 % [facility] RDW-SD 56.7 (H) 35.5 - 50.0 fl [facility] Platelet Count 142 140 - 400 K/uL [facility] MPV 10.1 8.5 - 12.0 fL [facility] Seg Neut Absolute 3.4 1.8 - 8.0 K/uL [facility] Lymphocytes Absolute 1.2 0.8 - 4.1 K/uL [facility] Monocytes Absolute 0.6 0.0 - 1.0 K/uL [facility] Eosinophils Absolute 0.2 0.0 - 0.7 K/uL [facility] Basophil Absolute 0.0 0.0 - 0.2 K/uL [facility] Immature Granulocyte 0.00 0.00 - 0.06 [facility] Absolute K/uL [facility] Neutrophils Abs. 3,400 /uL [facility] (Segs and Bands) [facility] Neutrophils Percent 63.1 % [facility] Lymphocytes Percent 21.6 % [facility] Monocytes Percent 10.7 % [facility] Immature Granulocyte 0.0 % [facility] Percent CLINIC Eosinophils Percent 4.4 % [facility] Basophil Percent 0.2 % [facility] Nucleated RBC 0 /100 WBC's [facility] Specimen Blood Performing Organization Address City/State/Zipcode Phone Number [facility] [address] [place] [address] COMPREHENSIVE METABOLIC PANEL (02/09/2019 5:13 AM CDT)Only the most recent of2 resultswithin the time period is included. Glucose 98 70 - 100 mg/dL [facility] BUN 14 6 - 22 mg/dL [facility] Creatinine 0.89 0.80 - 1.30 [facility] mg/dL [facility] BUN/Creatinine Ratio 15.7 10.0 - 25.0 [facility] Sodium 137 135 - 145 meq/L [facility] Potassium 4.8 3.5 - 5.3 meq/L [facility] Chloride 106 99 - 110 meq/L [facility] CO2 26 20 - 29 meq/L [facility] Anion Gap with K 10 6 - 20 meq/L [facility] Calcium 9.1 8.5 - 10.5 [facility] mg/dL [facility] Protein Total 6.0 6.0 - 8.2 g/dL [facility] Albumin 3.2 (L) 3.5 - 5.0 g/dL [facility] Alkaline Phosphatase 94 30 - 150 U/L [facility] AST - SGOT 27 0 - 35 U/L [facility] ALT - SGPT 13 0 - 55 U/L [facility] Bilirubin Total 0.2 0.2 - 1.2 mg/dL [facility] Corrected Calcium 9.7 8.5 - 10.5 [facility] mg/dL CLINIC Age 58 Years [facility] eGFR Non- 88 >=60 [facility] [place] mL/min/1.73m2 [facility] eGFR >90 >=60 [facility] mL/min/1.73m2 [facility] Specimen Blood Performing Organization Address City/[facility]/Zipcode Phone Number [address] [address] CARCINOEMBRYONIC ANTIGEN (02/09/2019 5:13 AM CDT)Only the most recent of2 resultswithin the time period is included. CEA 4.6 (H) 0.0 - 3.0 ng/mL [facility] Specimen Blood Narrative Performed At Normal:0-5 ng/mL Smoker [facility] CEA was measured using the [place] method.Results measured using different testing methods cannot be directly compared. Performing Organization Address City/[facility]/Zipcode Phone Number [address] [address] ECHO ADULT COMPLETE (02/08/2019 2:32 PM CDT) Specimen Narrative Performed At [facility] Patient: ISMAEL ENRIQUE MR#:[id number] Exam Date: 02/08/2019 Transthoracic Echocardiogram [facility] [address] [facility], [id number] : 152/111 mmHgHR:91 bpm : 1960Exam Location: Bedside Height:67.00 "( 170.2 cm) Age: 58 year(s)Patient Room: [facility] 1Weight:158 lbs.( 71.67 kg) Gender:MalePatient Status: Inpatient BSA: 1.83 m2 Game Engineer:DANIEL CONNER RDCS (PE) Reading Physician:BHAVANA BLUE MD Ordering Physician: BASSEM MONTERO MD Referring Physician:ANTHONY HOPKINS MD Procedure Indication(s):Anasarca Examination:TTE Complete 2D(m-mode) , Complete Spectral Doppler, Color Doppler Conclusions Left Ventricle: Normal left ventricular systolic function. The ejection fraction is visually estimated to be 55 %. There are no left ventricular regional wall motion abnormalities. Aortic Valve: No aortic stenosis. Mitral Valve: Trivial mitral regurgitation. Right Ventricle: Normal right ventricular size. Normal right ventricular systolic function. Pulmonary Artery: No significant pulmonary artery hypertension. Pericardium: No significant pericardial effusion. Comparison Study Comparison Study: No previous echo was available for comparison Findings Left Ventricle: Mildly dilated left ventricle. Normal left ventricular wall thickness. Normal left ventricular systolic function. The ejection fraction is visually estimated to be 55 %. There are no left ventricular regional wall motion abnormalities. There is fusion of early and atrial contributions to left ventricular filling. Left Atrium: Normal left atrial size. Aortic Valve: The aortic valve is tricuspid. Mild aortic cuspal thickening. Aortic sclerosis is present. Normal aortic cuspal mobility. No significant aortic regurgitation. No aortic stenosis. Aorta: The sinus of valsalva is normal in size. The ascending aorta is normal in size measuring 35.0 mm. Mitral Valve: Mild mitral leaflet thickening. Trivial mitral regurgitation. No mitral stenosis. IAS: There is increased thickness of the atrial septum; consistent with lipomatous hypertrophy. There is a possible PFO. Right Ventricle: Normal right ventricular size. Normal right ventricular systolic function. Pulmonary artery systolic pressure is measured at 24 mmHg. Tricuspid valve lateral annulus peak systolic velocity is 10.3 cm/sec. Pulmonary Artery: No significant pulmonary artery hypertension. Right Atrium: Normal right atrial size. Tricuspid Valve: Trivial tricuspid regurgitation. Pulmonic Valve: Trivial pulmonary regurgitation. IVC: Normal IVC size with normal respirophasic changes. Pericardium: No significant pericardial effusion. Left side pleural effusion. Measurements Left Ventricle Aortic Valve LabelValueNormal Value LabelValue Normal Value LVDd, 2D45.6 mm LVOT Vmax 90 cm/s LVDs, 2D31.4 mm AV Vmax 111 cm/s IVSd, 2D12.5 mm LVOTd 23 mm LVPWd, 2D 11.9 mm LVOT VTI18.6 cm FS, 2D31.14 % LVOT PGmax3 mmHg Cardiac Output7.01 L/min AV Vmean85 cm/s Cardiac Index 3.83 AV VTI22 cm L/min/m-sq AV PGmax 5 mmHg Right Ventricle AV PGmean 3 mmHg LabelValueNormal Value GENESIS (Vmax)3.4 cm-sq S' Tissue Doppler 10.3 AV Vmax, [id number] cm/s cm/sec GENESIS(VTI) 3.5 cm-sq Left Atrium Obstruction Index 0.85 LabelValueNormal Value (VTI) LADs Long.48 mm Mitral Valve LA Volume Index 26.8 ml/m-sq LabelValue Normal Value Aorta MV E' septal5.8 cm/s LabelValueNormal Value MV E' lateral 7.1 cm/s Ao Asc35 mm Tricuspid Valve Ao Sinus, MM32 mm LabelValue Normal Value Heart Rate TR Vmax 229 cm/s LabelValueNormal Value TR Pmax 21 mmHg Heart Rate91 bpm RA Pressure 3 mmHg RVSP24 mmHg Pulmonic Valve LabelValueNormal Value PV Vmax 69 cm/s PV PGmax2 mmHg (No Signature Object) Procedure Note Interface, Inc Results No Pull Forward - 02/08/2019 3:47 PM CDT Patient: ISMAEL ENRIQUE MR#: [id number] Exam Date: 02/08/2019 Transthoracic Echocardiogram [facility] [address] [place] [address] BP: 152/111 mmHg HR: 91 bpm : 1960 Exam Location: Bedside Height: 67.00 "(170.2 cm) Age: 58 year(s) Patient Room: [facility] Weight: 158 lbs.(71.67 kg) Gender: Male Patient Status: Inpatient BSA: 1.83 m2 Game Engineer: DANIEL CONNER RDCS () Reading Physician: BHAVANA BLUE MD Ordering Physician: BASSEM MONTERO MD Referring Physician: ANTHONY HOPKINS MD Procedure Indication(s): Anasarca Examination: TTE Complete 2D(m-mode), Complete Spectral Doppler, Color Doppler Conclusions Left Ventricle: Normal left ventricular systolic function. The ejection fraction is visually estimated to be 55 %. There are no left ventricular regional wall motion abnormalities. Aortic Valve: No aortic stenosis. Mitral Valve: Trivial mitral regurgitation. Right Ventricle: Normal right ventricular size. Normal right ventricular systolic function. Pulmonary Artery: No significant pulmonary artery hypertension. Pericardium: No significant pericardial effusion. Comparison Study Comparison Study: No previous echo was available for comparison Findings Left Ventricle: Mildly dilated left ventricle. Normal left ventricular wall thickness. Normal left ventricular systolic function. The ejection fraction is visually estimated to be 55 %. There are no left ventricular regional wall motion abnormalities. There is fusion of early and atrial contributions to left ventricular filling. Left Atrium: Normal left atrial size. Aortic Valve: The aortic valve is tricuspid. Mild aortic cuspal thickening. Aortic sclerosis is present. Normal aortic cuspal mobility. No significant aortic regurgitation. No aortic stenosis. Aorta: The sinus of valsalva is normal in size. The ascending aorta is normal in size measuring 35.0 mm. Mitral Valve: Mild mitral leaflet thickening. Trivial mitral regurgitation. No mitral stenosis. IAS: There is increased thickness of the atrial septum; consistent with lipomatous hypertrophy. There is a possible PFO. Right Ventricle: Normal right ventricular size. Normal right ventricular systolic function. Pulmonary artery systolic pressure is measured at 24 mmHg. Tricuspid valve lateral annulus peak systolic velocity is 10.3 cm/sec. Pulmonary Artery: No significant pulmonary artery hypertension. Right Atrium: Normal right atrial size. Tricuspid Valve: Trivial tricuspid regurgitation. Pulmonic Valve: Trivial pulmonary regurgitation. IVC: Normal IVC size with normal respirophasic changes. Pericardium: No significant pericardial effusion. Left side pleural effusion. Measurements Left Ventricle Aortic Valve Label Value Normal Value Label Value Normal Value LVDd, 2D 45.6 mm LVOT Vmax 90 cm/s LVDs, 2D 31.4 mm AV Vmax 111 cm/s IVSd, 2D 12.5 mm LVOTd 23 mm LVPWd, 2D 11.9 mm LVOT VTI 18.6 cm FS, 2D 31.14 % LVOT PGmax 3 mmHg Cardiac Output 7.01 L/min AV Vmean 85 cm/s Cardiac Index 3.83 AV VTI 22 cm L/min/m-sq AV PGmax 5 mmHg Right Ventricle AV PGmean 3 mmHg Label Value Normal Value GENESIS (Vmax) 3.4 cm-sq S' Tissue Doppler 10.3 AV Vmax, Caliper 111 cm/s cm/sec GENESIS (VTI) 3.5 cm-sq Left Atrium Obstruction Index 0.85 Label Value Normal Value (VTI) LADs Long. 48 mm Mitral Valve LA Volume Index 26.8 ml/m-sq Label Value Normal Value Aorta MV E' septal 5.8 cm/s Label Value Normal Value MV E' lateral 7.1 cm/s Ao Asc 35 mm Tricuspid Valve Ao Sinus, MM 32 mm Label Value Normal Value Heart Rate TR Vmax 229 cm/s Label Value Normal Value TR Pmax 21 mmHg Heart Rate 91 bpm RA Pressure 3 mmHg RVSP 24 mmHg Pulmonic Valve Label Value Normal Value PV Vmax 69 cm/s PV PGmax 2 mmHg (No Signature Object) Performing Organization Address City/State/Zipcode Phone Number [facility] [place] IR PARACENTESIS (02/07/2019 5:50 PM CDT) Specimen Narrative Performed At [facility] Patient Name: ISMAEL ENRIQUE Date of :1960 Procedure: IR PARACENTESIS Date of Service: 02/07/2019 EXAM:ULTRASOUND GUIDED PARACENTESIS INDICATION: Ascites. SEDATION:Local anesthesia used. TECHNIQUE:Informed consent was obtained.Patient placed supine position on the interventional table.Ultrasound performed identifying ascites.Image was recorded.The skin overlying the right lower quadrant of the abdomen was prepped and draped in the usual sterile fashion.The skin was infiltrated with lidocaine.Using real-time ultrasound guidance, a drainage catheter was advanced into the peritoneal space with subsequent drainage of ascites fluid.Samples of the fluid sent for appropriate laboratory testing if requested.Catheter was removed and a sterile dressing applied. ESTIMATED BLOOD LOSS:Minimal. CONDITION: Stable. FINDINGS:Ultrasound demonstrates ascites. IMPRESSION: 1.Successful ultrasound guided paracentesis with drainage aq1299 mL of clear yellow ascites fluid. Finalized by: Roscoe Gonzalez MD on 02/08/2019 9:42 AM CDT Patient/Procedure Information: [facility] MRN/MARIA M: [id number] Order Number: [id number] Accession Number: [id number] Ordering Provider: ANTHONY HOPKINS Authorizing Provider: ANTHONY HOPKINS Procedure Note Interface, Radiantres - 02/08/2019 9:44 AM CDT Patient Name: ISMAEL ENRIQUE Date of : 1960 Procedure: IR PARACENTESIS Date of Service: 02/07/2019 EXAM: ULTRASOUND GUIDED PARACENTESIS INDICATION: Ascites. SEDATION: Local anesthesia used. TECHNIQUE: Informed consent was obtained. Patient placed supine position on the interventional table. Ultrasound performed identifying ascites. Image was recorded. The skin overlying the right lower quadrant of the abdomen was prepped and draped in the usual sterile fashion. The skin was infiltrated with lidocaine. Using real-time ultrasound guidance, a drainage catheter was advanced into the peritoneal space with subsequent drainage of ascites fluid. Samples of the fluid sent for appropriate laboratory testing if requested. Catheter was removed and a sterile dressing applied. ESTIMATED BLOOD LOSS: Minimal. CONDITION: Stable. FINDINGS: Ultrasound demonstrates ascites. IMPRESSION: 1. Successful ultrasound guided paracentesis with drainage of 1500 mL of clear yellow ascites fluid. Finalized by: Roscoe Gonzalez MD on 02/08/2019 9:42 AM CDT Patient/Procedure Information: [facility] MRN/MARIA M: [id number] Order Number: [id number] Accession Number: [id number] Ordering Provider: ANTHONY HOPKINS Authorizing Provider: ANTHONY HOPKINS Performing Organization Address [facility]/Zipcode Phone Number [id number] LAB ONLY-DIFFERENTIAL, BODY FLUID (02/07/2019 5:48 PM CDT) % Neutrophils BF 2 % [facility] % Lymphocytes BF 35 % [facility] % Macrophage/Monocyte BF 63 % [facility] Specimen Fluid Performing Organization Address [facility]/Zipcode Phone Number [address] [address] LAB ONLY-CELL COUNT, BODY FLUID (02/07/2019 5:48 PM CDT) Specimen Source Peritoneal/Ascit [facility] es CLINIC BF Turbid [facility] Clarity/Appearance CLINIC BF Nucleated Cells 147 /uL [facility] Specimen Fluid Narrative Performed At The reference range and other method performance [facility] specifications are unavailable for this body fluid. Comparison of this result with the concentration in the blood, serum, or plasma is recommended. Performing Organization Address [facility] Cent[facility]ode Phone Number [address] [address] ALBUMIN, BODY FLUID (02/07/2019 5:48 PM CDT) Albumin Body Fluid 0.9 g/dL [facility] Specimen Source Peritoneal/Ascit [facility] Specimen Fluid Narrative Performed At The reference range and other method performance [facility] specifications are unavailable for this body fluid.Comparison of this result with the concentration in the blood, serum, or plasma is recommended. Performing Organization Address [facility] Phone Number [address] [address] CYTOLOGY-BODY FLUID/OTHER (02/07/2019 5:48 PM CDT) CASE REPORT Medical Cytology Report Case: [id number] [facility] Authorizing Provider:Anthony Hopkins [facility]lected: 02/07/2019 1748 CLINIC Ordering Location: [facility] 7SReceived: 02/07/2019 1842 Pathologist: Valentina Edouard MD Specimen:Peritoneal/Ascites FINAL DIAGNOSIS A. Peritoneal/Ascites: [facility] Electronically Negative for malignancy. CLINIC signed by Javan, - Mesothelial cells and blood elements with numerous lymphocytes and a few neutrophils. See comment. MD Valentina on 02/09/2019 at 11:24 AM DIAGNOSIS COMMENT If clinical suspicion for malignant effusion is high, repeat paracentesis for cytology is recommended. [facility] GROSS DESCRIPTION RECEIVED 55 ML CLOUDY YELLOW FLUID [facility] PREPARED 2 SLIDES AND CELL BLOCK USING CONCENTRATION TECHNIQUE. [facility] EMBEDDED IMAGES [facility] Specimen Fluid Performing Organization Address [facility] Centercome Phone Number [address] [place] [address] [facility] [address] [facility] [place] [phone] URINALYSIS MICROSCOPIC (02/07/2019 1:36 PM CDT) WBC Urine 3-5 Negative, 0-2, 3-5 [facility] /HPF RBC Urine >=50 (A) Negative, 0-2 /HPF [facility] Bacteria Rare (0-5) Negative, Rare [facility] (0-5), Few (6-30) /HPF Specimen Urine Narrative Performed At Microscopic exam performed.Elements present are reported [facility] above. Performing Organization Address [facility] Centercode Phone Number [address] [address] URINALYSIS DIPSTICK REFLEX TO MICROSCOPIC (02/07/2019 1:36 PM CDT) Color Urine Colorless Colorless, [facility] Yellow, Straw, CLINIC Dark Yellow, [place] Clarity Urine Clear Clear [facility] Glucose Urine Negative Negative [facility] Bilirubin Urine <2 mg/dL <2 mg/dL [facility] Ketone Urine Negative Negative, 5 mg/dL [facility] Specific Bird In Hand 1.010 1.002 - 1.035 [facility] Blood Urine Large (A) Negative [facility] pH Urine 6.0 5.0, 5.5, 6.0, [facility] 6.5, 7.0, 7.5, CLINIC 8.0 Protein Urine Negative Negative [facility] Urobilinogen Urine <2 mg/dL <2 mg/dL [facility] Nitrite Urine Negative Negative [facility] Leukocyte Esterase Negative Negative [facility] Specimen Urine Performing Organization Address [facility] Centercode Phone Number [address] [address] LACTIC ACID (02/07/2019 11:05 AM CDT) Lactic Acid 1.5 0.5 - 2.2 mmol/L [facility] Specimen Blood Performing Organization Address [facility] Centercode Phone Number [address] [address] BRAIN NATRIURETIC PEPTIDE (02/07/2019 11:05 AM CDT) BNP 191 (H) 0 - 100 pg/mL [facility] Specimen Blood Performing Organization Address City/State/Zipcode Phone Number [facility] [address] [facility] [place] [address] documented in this encounter Visit Diagnoses Diagnosis Rectal cancer metastasized to intrapelvic lymph node (HCC) - Primary Malignant neoplasm of rectum Essential hypertension Unspecified essential hypertension Cirrhosis of liver with ascites, unspecified hepatic cirrhosis type (HCC) Controlled type 2 diabetes mellitus without complication, without long-term current use of insulin (HCC) Left lower quadrant pain Abdominal pain, left lower quadrant Anasarca Edema Fluid overload Other fluid overload Malignant ascites Portal hypertension (HCC) Portal hypertension documented in this encounter Discharge Diagnoses Not on filedocumented in this encounter Administered Medications Medication Order MAR Action Action Date Dose Rate Site apixaban (ELIQUIS) tablet 5 mg Given 02/09/2019 8:10 AM CDT 5 mg 5 mg, Oral, Every twelve hours, First dose on Wed02/08/19 at 2300, Until Discontinued Given 02/08/2019 11:04 PM CDT 5 mg bisacodyl (DULCOLAX) suppository 10 mg 10 mg, Rectal, One time a day prn, Starting Wed02/07/19 at 1152, Until Discontinued, constipation, Use SECOND for constipation. If patient cannot take oral medications, use first for constipation., carbohydrate 15 g 15 g, Oral, PRN per parameter, Starting Wed02/07/19 at 1525, Until Discontinued , low blood glucose, Give 15 grams of carbohydrate if blood glucose is less than 70 mg/dL, patient is responsive and able to take food or oral meds. Recheck blood glucose in 15 minutes. Repeat 1 time and call MD. If recheck is greater than 70 mg/dL and able to take food or oral meds, give 15 gram carbohydrate if meal or snack due in more than an hour. Serve meal or snack if due in less than 1 hour. See hypoglycemia treatment on cardex. Sources of 15 grams carbohydrate: a.4 oz of fruit juice or b.4 oz of soda pop (NOT diet) or c.1 tablespoon of honey, cefTRIAXone (ROCEPHIN) 2000 mg/20 mL IV Given 02/09/2019 1:48 PM CDT 2,000 mg syringe in sterile water 2,000 mg, IV, Every twenty four hours, First dose on Wed02/07/19 at 1300, Until Discontinued, 20 mL, Flush IV line with normal saline prior and post administration. Do not administer with calcium containing solutions (example: Lactated Ringer's, TPN with calcium, etc) as these are not compatible with ceftriaxone. Administer over 5 minutes., Given 02/08/2019 2:12 PM CDT 2,000 mg Given 02/07/2019 1:46 PM CDT 2,000 mg dextrose 50% IV solution 50 mL 50 mL (25 g), IV, PRN per parameter, Starting Wed02/07/19 at 1525, Until Discontinued, low blood glucose, 50 mL, Give if blood glucose is less than 70 mg/dL, patient is unresponsive or NPO, and has IV access. Recheck blood glucose in 15 minutes and call MD. Repeat dose if recheck less than 70 mg/dL and call MD. If recheck is greater than 70 mg/dL and able to take food or oral meds, give 15 gram carbohydrate if meal or snack due in more than an hour. Serve meal or snack if due in less than 1 hour. See hypoglycemia treatment on cardex., dextrose chewable tablet 16 g 16 g (4 tablet), Oral, PRN per parameter, Starting Wed02/07/19 at 1525, Until Discontinued, low blood glucose, Chew before swallowing. Give 15 gram of carbohydrate if blood glucose is less than 70 mg/dL, patient is responsive and able to take food or oral meds. Recheck blood glucose in 15 minutes. Repeat 15 gram carbohydrate if recheck is less than 70 mg/dL and call MD. If recheck is greater than 70 mg/dL and able to take food or oral meds, give 15 gram carbohydrate if meal or snack due in more than an hour. Serve meal or snack if due in less than 1 hour. See hypoglycemia treatment on cardex. (Sources of 15 gram carbohydrate: 4 oz fruit juice or 4 oz soda pop (NOT diet) or 1 tablespoonful honey or 4 glucose tablets )., docusate sodium (THEREVAC-SB MINI;ENEMEEZ MINI) 283 MG enema 1 enema 1 enema, Rectal, One time a day prn, Starting Wed02/07/19 at 1152, Until Discontinued, constipation, Use THIRD for constipation - if no BM 8 hours after ducolax suppository. If patient cannot take oral medications, use second for constipation., fluticasone-vilanterol (BREO ELLIPTA) 200-25 Given 02/09/2019 8:05 AM CDT 1 puff mcg/puff inhaler 1 puff 1 puff, Inhalation, Daily, First dose on Wed02/07/19 at 1135, Until Discontinued, Formulary substitute for Dulera while in hospital, , Given 02/08/2019 8:47 AM CDT 1 puff Given 02/07/2019 1:23 PM CDT 1 puff furosemide (LASIX) tablet 40 mg Given 02/09/2019 8:10 AM CDT 40 mg 40 mg, Oral, Two times a day diuretic, First dose on Wed02/09/19 at 0800, Until Discontinued glucagon for injection 1 mg vial 1 mg 1 mg, Intramuscular, PRN per parameter, Starting Wed02/07/19 at 1525, Until Discontinued, low blood glucose, Give if blood glucose less than 70 mg/dL, patient is unresponsive or NPO, and has no IV access. Establish IV access. Recheck blood glucose in 15 minutes and call MD. If recheck is greater than 70 mg/dL and able to take food or oral meds, give 15 gram carbohydrate if meal or snack due in more than an hour. Serve meals or snack if due in less than 1 hour. See hypoglycemia treatment on cardex. Reconstitute vial with 1 mL of sterile water for injection for reconstitution for a final concentration of 1 mg/mL. Shake vial gently. Use immediately and discard unused portion. Reconstitute with 1 mL of sterile water for injection to yield 1 mg/mL. Shake vial gently. Use immediately and discard unused portion., hydrALAZINE (APRESOLINE) injection solution 10 mg 10 mg, IV, Every four hours prn, Starting Wed02/09/19 at 0051, Until Discontinued, Give SECOND for systolic blood pressure greater than 180., 1 mL HYDROcodone-acetaminophen (NORCO) 5-325 mg Given 02/09/2019 1:45 PM CDT 1 tablet tablet 1 tablet 1 tablet, Oral, Every four hours prn, Starting Wed02/07/19 at 1152, Until Discontinued, moderate pain, for pain scale 4 to 6 or pain not relieved by medications for pain scale 1 - 3, Given 02/09/2019 8:10 AM CDT 1 tablet Given 02/09/2019 12:54 AM CDT 1 tablet HYDROmorphone (DILAUDID) injection solution Given 02/08/2019 5:28 AM CDT 0.25 mg (conc: 0.5 mg/0.5mL) 0.25 mg 0.25 mg, IV, Every two hours prn, Starting Wed02/07/19 at 1152, Until Discontinued, severe pain, 0.5 mL, for pain Scale 7 or greater or pain not relieved by medications for Pain Scale 4 to 6, Given 02/07/2019 2:47 PM CDT 0.25 mg insulin aspart (NovoLOG) SQ correction Given 02/09/2019 1:45 PM CDT 2 Units scale (Adult) 2-8 Units, Subcutaneous, Three times a day with meals, First dose on Wed02/07/19 at 1730, Until Discontinued, 0.08 mL, Patient is eating LOW DOSE insulin aspart (NovoLOG) subcutaneous correction scale Premeal Blood Glucose=Insulin Dose 150-199 2 units 200-249 3 units 250-299 5 units 300-349 7 units Over 349 8 units, insulin glargine (LANTUS) SQ injection Given 02/08/2019 8:39 PM CDT 10 Units 10 Units, Subcutaneous, Bedtime, First dose on Wed02/07/19 at 2100, Until Discontinued, 0.1 mL, Do not hold. Call provider if blood glucose less than 100 mg/dl, if patient changed to NPO or if tube feedings stopped., Given 02/07/2019 9:27 PM CDT 10 Units labetalol (NORMODYNE;TRANDATE) IV solution 20 mg 20 mg, IV, Every four hours prn, Starting Rachel 02/09/19 at 0051, Until Discontinued, Give FIRST for systolic blood pressure greater than 180. Hold for heart rate less than 60., 20 mL magnesium oxide tablet 250 mg Given 02/09/2019 8:10 AM CDT 250 mg 250 mg, Oral, Two times a day, First dose on Wed02/07/19 at 2100, Until Discontinued Given 02/08/2019 8:39 PM CDT 250 mg Given 02/08/2019 10:00 AM CDT 250 mg melatonin tablet 3 mg Given 02/09/2019 12:54 AM CDT 3 mg 3 mg, Oral, Bedtime prn, Starting Wed02/07/19 at 1152, Until Discontinued, other (Specify), insomnia, If inadequate response in 60 minutes, may proceed to next choice option or, if no other options, contact provider., metoclopramide (REGLAN) inj soln 5 mg 5 mg, IV, Every eight hours prn, Starting Wed02/07/19 at 1152, Until Discontinued, nausea, vomiting, 2 mL, Use THIRD. If ineffective after 30 minutes and ondansetron oral and IV given, call physician for alternative. If preference is to further dilute for IV administration: First draw up patient-specific dose, then dilute to 10 mL with 0.9% sodium chloride., metoprolol tartrate (LOPRESSOR) tablet 50 mg 50 mg, Oral, Two times a day, First dose on Rachel 02/09/19 at 2100, Until Discontinued, Hold if SBP<100 or HR<55., ondansetron (ZOFRAN ODT) dispersible tablet 4 Given 02/08/2019 8:36 PM CDT 4 mg mg 4 mg, Oral, Every four hours prn, Starting Wed02/07/19 at 1152, Until Discontinued, nausea, vomiting, Use FIRST. If ineffective after 30 minutes use ondansetron IV, ondansetron (ZOFRAN) injection solution 4 mg 4 mg, IV, Every four hours prn, Starting Wed02/07/19 at 1152, Until Discontinued, nausea, vomiting, 2 mL, Use SECOND. If ineffective after 30 minutes and ondansetron oral given, use metoclopramide IV If preference is to further dilute for IV administration: First draw up patient-specific dose, then dilute to 10 mL with 0.9% sodium chloride., senna-docusate sodium (SENOKOT-S;PERICOLACE) tablet 2 tablet 2 tablet, Oral, Two times a day prn, Starting Wed02/07/19 at 1152, Until Discontinued, constipation, Use FIRST for constipation unless patient cannot take oral medications., sodium chloride 0.9% flush (adult) 10 mL Given 02/09/2019 8:05 AM CDT 10 mL 10 mL, IV, Two times a day and prn, First dose on Wed02/07/19 at 0915, Until Discontinued, 10 mL, Flush IV line as scheduled and as often as necessary before and after meds., Given 02/08/2019 8:41 PM CDT 10 mL Given 02/08/2019 10:00 AM CDT 10 mL Medication Order MAR Action Action Date Dose Rate Site apixaban (ELIQUIS) tablet 5 mg Given 02/07/2019 9:27 PM CDT 5 mg 5 mg, Oral, Every twelve hours, First dose on Wed02/07/19 at 1130, Until Discontinued Given 02/07/2019 1:10 PM CDT 5 mg furosemide (LASIX) injection solution 40 mg Given 02/07/2019 1:06 PM CDT 40 mg 40 mg, IV, Every twelve hours, First dose on Wed02/07/19 at 1200, Until Discontinued, 4 mL, If preference is to further dilute for IV administration: First draw up patient-specific dose, then dilute to 10 mL with 0.9% sodium chloride. Administer SLOW IV push., metoprolol tartrate (LOPRESSOR) tablet 25 mg Given 02/09/2019 8:10 AM CDT 25 mg 25 mg, Oral, Two times a day, First dose on Wed02/08/19 at 2300, Until Discontinued, Hold if SBP<100 or HR<55., Given 02/08/2019 11:04 PM CDT 25 mg documented in this encounter
== END 2019-02-07 07:25 | disposition other institution (70) ==
LOC: JP.ED 02:33
DX: C79.9 Secondary malignant neoplasm of unspecified site (principal); I10 Essential (primary) hypertension; J45.909 Unspecified asthma, uncomplicated; E11.9 Type 2 diabetes mellitus without complications; Z79.01 Long term (current) use of anticoagulants; Z87.891 Personal history of nicotine dependence; Z88.0 Allergy status to penicillin; Z79.899 Other long term (current) drug therapy; Z79.84 Long term (current) use of oral hypoglycemic drugs; R10.30 Lower abdominal pain, unspecified; Z85.038 Personal history of other malignant neoplasm of large intestine
CPT/HCPCS: 36415; 74177; 80053; 85025; 96374; 96375; 96376; 99285-25; J1170; J2405; J7030; Q9967

== ENCOUNTER 2019-02-20 06:17 | Emergency (ER) | payer BC ==
--- NOTE | 2019-02-20 08:36 | EDM.PDOC ---
ED HPI GENERAL MEDICAL PROBLEM - General Chief Complaint: Abdominal Pain Stated Complaint: ABD PAIN Time Seen by Provider: 02/20/19 07:55 Source of Information: Reports: Patient, Family History Limitations: Reports: No Limitations - History of Present Illness INITIAL COMMENTS - FREE TEXT/NARRATIVE: 58-year-old male was in for his IV infusion of antibiotics, and wants to be seen for abdominal pain and emesis fluid draining. He has known cirrhosis and adenocarcinoma of the abdomen. No fevers or chills. Onset: Unknown/Unsure Duration: Week(s): Associated Symptoms: Reports: Other (Having difficulty sleeping) - Related Data Allergies Allergy/AdvReac Type Severity Reaction Status Date / Time Penicillins Allergy Other Verified 02/20/19 09:53 Home Meds: Home Meds Albuterol [Ventolin HFA] 2 puff INH Q4HR PRN 03/09/18 [History] Bee Pollen 550 mg PO DAILY 03/09/18 [History] Multivitamin [Multi-Vitamin Daily] 1 each PO DAILY 03/09/18 [History] metFORMIN HCl [Metformin HCl] 1,000 mg PO BID 03/09/18 [History] Fexofenadine HCl 180 mg PO DAILY 03/11/18 [History] Apixaban [Eliquis] 5 mg PO BID 01/24/19 [History] Cholecalciferol (Vitamin D3) [Vitamin D3] 10,000 unit PO DAILY 01/24/19 [History ] Gentamicin [Garamycin 0.3% Ophth Soln] 1 drop EYEBOTH Q4HR 01/24/19 [History] Insulin Glarg,Human.Rec.Analog [Lantus Solostar] 10 unit SQ BEDTIME 01/24/19 [ History] Loperamide [Imodium AD] 2 mg PO ASDIRECTED 01/24/19 [History] Magnesium Oxide 500 mg PO TID 01/24/19 [History] Mometasone/Formoterol [Dulera 200 MCG/5 MCG] 2 puff INH BID 01/24/19 [History] Prochlorperazine Maleate [Compazine] 10 mg PO QID PRN 01/24/19 [History] traMADol [Ultram] 50 mg PO Q6HR PRN 01/24/19 [History] Furosemide 40 mg PO BID 02/14/19 [History] Metoprolol Tartrate [Lopressor] 50 mg PO BID 02/14/19 [History] Spironolactone 50 mg PO DAILY 02/14/19 [History] Acetaminophen/HYDROcodone [[place] 325-5 MG] 1 - 2 tab PO Q6H PRN 02/20/19 [ History] Past Medical History HEENT History: Reports: Allergic Rhinitis Cardiovascular History: Reports: Blood Clots/VTE/DVT, Hypertension Respiratory History: Reports: Asthma Gastrointestinal History: Reports: Other (See Below) Other Gastrointestinal History: severe protein calorie malnutrition. 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 tendon rupture, nontraumatic, extensor Neurological History: Reports: Headaches, Chronic Endocrine/Metabolic History: Reports: Diabetes, Type II, Other (See Below) Other Endocrine/Metabolic History: dyslipidemia Hematologic History: Reports: Anticoagulation Therapy Immunologic History: Reports: Other (See Below) Other Immunologic History: chemo pt Oncologic (Cancer) History: Reports: Colon - Infectious Disease History Infectious Disease History: Reports: Other (See Below) Other Infectious Disease History: MSSA of right middle finger, amputated - Past Surgical History Musculoskeletal Surgical History: Reports: Amputation, Arthroscopic Knee, Other (See Below) Other Musculoskeletal Surgeries/Procedures:: right middle finger amputation Social & Family History - Tobacco Use Smoking Status *Q: Former Smoker Years of Tobacco use: 25 Packs/Tins Daily: 2 Used Tobacco, but Quit: Yes Month/Year Tobacco Last Used: 2.2003 - Caffeine Use Caffeine Use: Reports: Soda Other Caffeine Use: 3 to 4 pops a day - Alcohol Use Days Per Week of Alcohol Use: 0 - Recreational Drug Use Recreational Drug Use: No ED ROS GENERAL - Review of Systems Review Of Systems: See Below Constitutional: Denies: Fever, Chills Respiratory: Denies: Shortness of Breath GI/Abdominal: Reports: Abdominal Pain. Denies: Constipation, Decreased Appetite , Nausea, Vomiting : Reports: No Symptoms ED EXAM, GI/ABD - Physical Exam Exam: See Below Exam Limited By: No Limitations General Appearance: Alert Eyes: Bilateral: Normal Appearance Respiratory/Chest: No Respiratory Distress, Lungs Clear Cardiovascular: Regular Rate, Rhythm GI/Abdominal Exam: Soft, Non-Tender Course - Vital Signs Last Recorded V/S: Last Vital Signs Temp 96.8 F 02/20/19 07:53 Pulse 89 02/20/19 07:53 Resp 22 H 02/20/19 07:53 BP 134/80 02/20/19 07:53 Pulse Ox 100 02/20/19 07:53 - Re-Assessments/Exams Free Text/Narrative Re-Assessment/Exam: 02/20/19 08:37 Despite the patient complaining of abdominal pain, his abdomen is soft and he does not react with significant pain to palpation. An ultrasound showed no appreciable ascites. I explained to the patient that taking fluid off his abdomen will not benefit him at this time. I gave him 12 doses of 5 mg Ambien to take at bedtime and he can follow up with his primary provider if not improving. He was discharged to receive his IV infusion of antibiotics. Departure - Departure Time of Disposition: 10:00 Disposition: Home, Self-Care 01 Clinical Impression: Abdominal pain Qualifiers: Abdominal location: generalized Qualified Code(s): R10.84 - Generalized abdominal pain - Discharge Information Instructions: Abdominal Pain, Adult, [id number] Referrals: Elier Tamayo MD [Primary Care Provider] - Forms: ED Department Discharge Care Plan Goals: Continue your current medications, and try a sleeping pill at bedtime as prescribed. Use nightly if needed, and recheck in the next several days if not improving satisfactorily.
== END 2019-02-20 09:30 | disposition home or self-care (01) ==
LOC: JP.ED 06:17
DX: R10.84 Generalized abdominal pain (principal); I10 Essential (primary) hypertension; J45.909 Unspecified asthma, uncomplicated; E11.9 Type 2 diabetes mellitus without complications; Z79.01 Long term (current) use of anticoagulants; Z79.4 Long term (current) use of insulin; Z79.899 Other long term (current) drug therapy; Z87.891 Personal history of nicotine dependence; Z88.0 Allergy status to penicillin
CPT/HCPCS: 99283

== ENCOUNTER 2019-02-23 02:19 | Emergency (ER) | payer BC ==
[2019-02-23] MEDS ORDERED: diphenhydrAMINE 25 MG Cap PO ONE (03:05)
--- NOTE | 2019-02-23 03:09 | EDM.PDOC ---
ED HPI GENERAL MEDICAL PROBLEM - General Chief Complaint: General Stated Complaint: CAN'T SLEEP/ABD PAIN Time Seen by Provider: 02/23/19 02:55 Source of Information: Reports: Patient, RN Notes Reviewed History Limitations: Reports: No Limitations - History of Present Illness INITIAL COMMENTS - FREE TEXT/NARRATIVE: 58-year-old gentleman presents emergency department today complaint of difficulty sleeping, he has been on Ambien the past which did not work for him also has a known history of colon cancer adenocarcinoma states he does not like the way the chemotherapy makes her feel. abd Pain Score (Numeric/FACES): 6 - Related Data Allergies Allergy/AdvReac Type Severity Reaction Status Date / Time Penicillins Allergy Other Verified 02/23/19 02:47 Home Meds: Home Meds Albuterol [Ventolin HFA] 2 puff INH Q4HR PRN 03/09/18 [History] Bee Pollen 550 mg PO DAILY 03/09/18 [History] Multivitamin [Multi-Vitamin Daily] 1 each PO DAILY 03/09/18 [History] metFORMIN HCl [Metformin HCl] 1,000 mg PO BID 03/09/18 [History] Fexofenadine HCl 180 mg PO DAILY 03/11/18 [History] Apixaban [Eliquis] 5 mg PO BID 01/24/19 [History] Cholecalciferol (Vitamin D3) [Vitamin D3] 10,000 unit PO DAILY 01/24/19 [History ] Gentamicin [Garamycin 0.3% Ophth Soln] 1 drop EYEBOTH Q4HR 01/24/19 [History] Insulin Glarg,Human.Rec.Analog [Lantus Solostar] 10 unit SQ BEDTIME 01/24/19 [ History] Loperamide [Imodium AD] 2 mg PO ASDIRECTED 01/24/19 [History] Magnesium Oxide 500 mg PO TID 01/24/19 [History] Mometasone/Formoterol [Dulera 200 MCG/5 MCG] 2 puff INH BID 01/24/19 [History] Prochlorperazine Maleate [Compazine] 10 mg PO QID PRN 01/24/19 [History] traMADol [Ultram] 50 mg PO Q6HR PRN 01/24/19 [History] Furosemide 40 mg PO BID 02/14/19 [History] Metoprolol Tartrate [Lopressor] 50 mg PO BID 02/14/19 [History] Spironolactone 50 mg PO DAILY 02/14/19 [History] Acetaminophen/HYDROcodone [[place] 325-5 MG] 1 - 2 tab PO Q6H PRN 02/20/19 [ History] Cromax Plus 250 mcg PO DAILY 02/23/19 [History] Zinc Gluconate [Zinc] 50 mg PO DAILY 02/23/19 [History] Past Medical History HEENT History: Reports: Allergic Rhinitis Cardiovascular History: Reports: Blood Clots/VTE/DVT, Hypertension Respiratory History: Reports: Asthma Gastrointestinal History: Reports: Other (See Below) Other Gastrointestinal History: severe protein calorie malnutrition. 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 tendon rupture, nontraumatic, extensor Neurological History: Reports: Headaches, Chronic Endocrine/Metabolic History: Reports: Diabetes, Type II, Other (See Below) Other Endocrine/Metabolic History: dyslipidemia Hematologic History: Reports: Anticoagulation Therapy Immunologic History: Reports: Other (See Below) Other Immunologic History: chemo pt Oncologic (Cancer) History: Reports: Colon - Infectious Disease History Infectious Disease History: Reports: Other (See Below) Other Infectious Disease History: MSSA of right middle finger, amputated - Past Surgical History Musculoskeletal Surgical History: Reports: Amputation, Arthroscopic Knee, Other (See Below) Other Musculoskeletal Surgeries/Procedures:: right middle finger amputation Social & Family History - Tobacco Use Smoking Status *Q: Former Smoker Used Tobacco, but Quit: Yes Month/Year Tobacco Last Used: 2013 - Caffeine Use Caffeine Use: Reports: Coffee, Soda Other Caffeine Use: 3 to 4 pops a day - Recreational Drug Use Recreational Drug Use: No ED ROS GENERAL - Review of Systems Review Of Systems: See Below Constitutional: Reports: Other (Difficulty sleeping) HEENT: Reports: No Symptoms Respiratory: Reports: No Symptoms Cardiovascular: Reports: No Symptoms GI/Abdominal: Reports: No Symptoms : Reports: No Symptoms Neurological: Reports: No Symptoms ED EXAM, GENERAL - Physical Exam Exam: See Below Exam Limited By: No Limitations General Appearance: Alert, WD/WN, No Apparent Distress Respiratory/Chest: No Respiratory Distress Course - Vital Signs Last Recorded V/S: Last Vital Signs Temp 97.6 F 02/23/19 02:41 Pulse 82 02/23/19 02:41 Resp 18 02/23/19 02:41 BP 121/85 02/23/19 02:41 Pulse Ox 100 02/23/19 02:41 - Orders/Labs/Meds Meds: Medications Discontinued Medications Generic Name Dose Route Start Last Admin Trade Name Cheryl PRN Reason Stop Dose Admin Diphenhydramine HCl 50 mg 02/23/19 03:05 02/23/19 03:34 Benadryl PO 02/23/19 03:06 50 mg ONETIME ONE Administration Diphenhydramine HCl Confirm 02/23/19 03:33 Benadryl Administered 02/23/19 03:34 Dose 25 mg .ROUTE .STK-MED ONE Departure - Departure Time of Disposition: 05:53 Disposition: Home, Self-Care 01 Condition: Poor Clinical Impression: Insomnia Qualifiers: Insomnia type: unspecified Qualified Code(s): G47.00 - Insomnia, unspecified - Discharge Information Referrals: Elier Tamayo MD [Primary Care Provider] - Forms: ED Department Discharge Additional Instructions: Use Benadryl 1-2 tablets tonight as needed, regular follow-up appointments with your primary care - Assessment/Plan Plan: Assessment Acuity = acute Site and laterality = insomnia Etiology = unclear etiology Manifestations = none Location of injury = Home Lab values = none Plan Good success and Benadryl recommend Benadryl 25-50 mg by mouth daily at bedtime when necessary primary care as needed This note was dictated using [employer] voice recognition software please call with any questions on syntax or grammar.
[2019-02-23] MEDS ORDERED: diphenhydrAMINE 25 MG Cap ONE (03:33)
== END 2019-02-23 06:00 | disposition home or self-care (01) ==
LOC: JP.ED 02:19
DX: G47.00 Insomnia, unspecified (principal); I10 Essential (primary) hypertension; J45.909 Unspecified asthma, uncomplicated; E11.9 Type 2 diabetes mellitus without complications; Z87.891 Personal history of nicotine dependence; Z88.0 Allergy status to penicillin; Z79.899 Other long term (current) drug therapy; Z79.84 Long term (current) use of oral hypoglycemic drugs; Z79.01 Long term (current) use of anticoagulants; Z79.4 Long term (current) use of insulin
CPT/HCPCS: 99283; A9270

== ENCOUNTER 2019-03-30 13:47 | Emergency (ER) | payer BC ==
[2019-03-30] MEDS ORDERED: Sodium Chloride 0.9% 500 ML IV SCH (15:00)
--- NOTE | 2019-03-30 15:15 | EDM.PDOC ---
ED HPI GENERAL MEDICAL PROBLEM - General Chief Complaint: General Stated Complaint: SENT FROM CLINIC/LOW BLOOD PRESSURE Time Seen by Provider: 03/30/19 14:15 Source of Information: Reports: Patient, Provider History Limitations: Reports: No Limitations - History of Present Illness INITIAL COMMENTS - FREE TEXT/NARRATIVE: 59-year-old male with hypertension, diabetes and known metastatic carcinoma recently had a stent put in his right ureter because of obstruction of the left collecting system. Today he went into the clinic to get an injection in his elbow, was found to have low blood pressure so was sent to the emergency room. He has some mild lightheadedness but otherwise feels okay. Onset: Unknown/Unsure Associated Symptoms: Reports: Weakness (Mild weakness and dizziness, especially with activity). Denies: Fever/Chills Lower Abdomen Pain Score (Numeric/FACES): 5 - Related Data Allergies Allergy/AdvReac Type Severity Reaction Status Date / Time Penicillins Allergy Other Verified 03/30/19 13:56 Home Meds: Home Meds Albuterol [Ventolin HFA] 2 puff INH Q4HR PRN 03/09/18 [History] Bee Pollen 550 mg PO DAILY 03/09/18 [History] Multivitamin [Multi-Vitamin Daily] 1 each PO DAILY 03/09/18 [History] metFORMIN HCl [Metformin HCl] 1,000 mg PO BID 03/09/18 [History] Fexofenadine HCl 180 mg PO DAILY 03/11/18 [History] Apixaban [Eliquis] 5 mg PO BID 01/24/19 [History] Cholecalciferol (Vitamin D3) [Vitamin D3] 10,000 unit PO DAILY 01/24/19 [History ] Gentamicin [Garamycin 0.3% Ophth Soln] 1 drop EYEBOTH Q4HR 01/24/19 [History] Insulin Glarg,Human.Rec.Analog [Lantus Solostar] 10 unit SQ BEDTIME 01/24/19 [ History] Loperamide [Imodium AD] 2 mg PO ASDIRECTED 01/24/19 [History] Magnesium Oxide 500 mg PO TID 01/24/19 [History] Mometasone/Formoterol [Dulera 200 MCG/5 MCG] 2 puff INH BID 01/24/19 [History] Prochlorperazine Maleate [Compazine] 10 mg PO QID PRN 01/24/19 [History] traMADol [Ultram] 50 mg PO Q6HR PRN 01/24/19 [History] Furosemide 40 mg PO DAILY 02/14/19 [History] Metoprolol Tartrate [Lopressor] 50 mg PO BID 02/14/19 [History] Spironolactone 50 mg PO DAILY 02/14/19 [History] Acetaminophen/HYDROcodone [[place] 325-5 MG] 1 - 2 tab PO Q6H PRN 02/20/19 [ History] Cromax Plus 250 mcg PO DAILY 02/23/19 [History] Zinc Gluconate [Zinc] 50 mg PO DAILY 02/23/19 [History] Past Medical History HEENT History: Reports: Allergic Rhinitis Cardiovascular History: Reports: Blood Clots/VTE/DVT, Hypertension Respiratory History: Reports: Asthma Gastrointestinal History: Reports: Other (See Below) Other Gastrointestinal History: severe protein calorie malnutrition. 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 tendon rupture, nontraumatic, extensor Neurological History: Reports: Headaches, Chronic Endocrine/Metabolic History: Reports: Diabetes, Type II, Other (See Below) Other Endocrine/Metabolic History: dyslipidemia Hematologic History: Reports: Anticoagulation Therapy Immunologic History: Reports: Other (See Below) Other Immunologic History: chemo pt Oncologic (Cancer) History: Reports: Colon - Infectious Disease History Infectious Disease History: Reports: Other (See Below) Other Infectious Disease History: MSSA of right middle finger, amputated - Past Surgical History Male Surgical History: Reports: Other (See Below) Other Male Surgeries/Procedures: stent between bladder and kidney in February Musculoskeletal Surgical History: Reports: Amputation, Arthroscopic Knee, Other (See Below) Other Musculoskeletal Surgeries/Procedures:: right middle finger amputation Social & Family History - Tobacco Use Smoking Status *Q: Never Smoker Second Hand Smoke Exposure: No - Caffeine Use Caffeine Use: Reports: Soda Other Caffeine Use: 3 to 4 pops a day - Recreational Drug Use Recreational Drug Use: No ED ROS GENERAL - Review of Systems Review Of Systems: See Below Constitutional: Reports: Malaise. Denies: Fever, Chills Respiratory: Denies: Shortness of Breath Cardiovascular: Denies: Chest Pain GI/Abdominal: Reports: Abdominal Pain (Chronic recurring abdominal pain) Skin: Reports: Other (Some bruising has developed in his left lower quadrant from his recent procedure) Neurological: Reports: Dizziness. Denies: Headache ED EXAM, GENERAL - Physical Exam Exam: See Below Exam Limited By: No Limitations General Appearance: Alert, No Apparent Distress Eye Exam: Bilateral Eye: Normal Inspection (Good hydration, no significant jaundice) Respiratory/Chest: No Respiratory Distress, Lungs Clear Cardiovascular: Regular Rate, Rhythm, Tachycardia (Patient is mildly tachycardic at 104) GI/Abdominal: Other (Mild distention is present compared to his previous ER exam over one month ago) Neurological: Alert, Oriented Psychiatric: Normal Affect, Normal Mood Skin Exam: Warm, Dry Course - Vital Signs Last Recorded V/S: Last Vital Signs Temp 97.9 F 03/30/19 20:36 Pulse 101 H 03/30/19 20:36 Resp 16 03/30/19 20:36 BP 124/80 03/30/19 20:36 Pulse Ox 91 L 03/30/19 20:36 Orthostatic Blood Pressure [ 84/55 Standing] Orthostatic Blood Pressure [ 95/61 Sitting] Orthostatic Blood Pressure [ 87/57 Supine] - Orders/Labs/Meds Orders: Active Orders 24 hr Category Date Time Status Transfuse Red Blood Cells [COMM] Routine Oth 03/30/19 16:58 Ordered Labs: Laboratory Tests 03/30/19 03/30/19 03/30/19 Range/Units 15:20 15:20 15:20 WBC 7.2 (4.5-11.0) K/uL RBC 2.19 L (4.30-5.90) M/uL Hgb 6.2 L* D (12.0-15.0) g/dL Hct 20.1 L (40.0-54.0) % MCV 92 (80-98) fL MCH 28 (27-31) pg MCHC 31 L (32-36) % Plt Count 135 L (150-400) K/uL Add Manual Diff Yes Neutrophils % (Manual) 90 H (36-66) % Band Neutrophils % 3 L (5-11) % Lymphocytes % (Manual) 5 L (24-44) % Monocytes % (Manual) 1 L (2-6) % Eosinophils % (Manual) 1 L (2-4) % Sodium 135 L (140-148) mmol/L Potassium 5.0 (3.6-5.2) mmol/L Chloride 101 (100-108) mmol/L Carbon Dioxide 22 (21-32) mmol/L Anion Gap 17.0 H (5.0-14.0) mmol/L BUN 29 H D (7-18) mg/dL Creatinine 2.6 H D (0.8-1.3) mg/dL Est Cr Clr Drug Dosing 29.82 mL/min Estimated GFR (MDRD) 26 L (>60) Glucose 172 H (74-106) mg/dL Calcium 8.5 (8.5-10.1) mg/dL Blood Type O POSITIVE Gel Antibody Screen Negative Crossmatch See Detail Meds: Medications Discontinued Medications Generic Name Dose Route Start Last Admin Trade Name Cheryl PRN Reason Stop Dose Admin Sodium Chloride 500 mls @ 1,000 mls/hr 03/30/19 15:00 03/30/19 15:05 Normal Saline IV 1,000 mls/hr ASDIRECTED [facility] Administration - Re-Assessments/Exams Free Text/Narrative Re-Assessment/Exam: 03/30/19 15:14 Orthostatic blood pressures were done which were mildly positive, his pulse went from 104 lying down to 117 when standing. Blood pressure stayed steady with systolics in the mid to upper 80s to low 90s. Just minimal dizziness with standing. CBC and BMP were obtained and the patient was given 500 mL normal saline bolus. 03/30/19 16:08 Blood pressure normalized after 500 mils of normal saline, however CBC revealed a hemoglobin of only 6.2. Creatinine is 2.6 and GFR 26. This was compared to his recent procedural levels, GFR has fallen from 35 to 26 and creatinine is risen from 1.9 to 2.6. Last hemoglobin was 8.8. Discussed his levels with the hospitalist service and a CT of the abdomen and pelvis was recommended to assess whether the hydronephrosis has improved. CT showed no acute change in the stent appears to be in its proper position and functioning. Patient will be admitted for 1 unit of packed RBCs by the hospitalist service then discharged. He has chemotherapy tomorrow, does not want be hospitalized overnight. Departure - Departure Time of Disposition: 20:59 Disposition: Home, Self-Care 01 Clinical Impression: Anemia Qualifiers: Anemia type: other cause Hypotension Qualifiers: Hypotension type: orthostatic hypotension Qualified Code(s): I95.1 - Orthostatic hypotension - Discharge Information Instructions: Anemia Referrals: Elier Tamayo MD [Primary Care Provider] - Forms: ED Department Discharge
--- NOTE | 2019-03-30 16:45 | CRLCT ---
INDICATION: History of colorectal carcinoma; anemia; renal failure. COMPARISON: CT abdomen and pelvis with intravenous contrast February 07, 2019. TECHNIQUE: CT abdomen and pelvis without intravenous contrast; coronal and sagittal reformats. FINDINGS: Small bilateral pleural effusion. Atelectatic changes both lower lobes. Normal size cardiac silhouette without any evidence of pericardial effusion. No focal hepatic pathology. Cholelithiasis. Questionable low densities identified within the spleen on this unenhanced CT; no such lesions were present on the previous CT; further assessment with a repeat CT of the abdomen with intravenous contrast suggested. No pancreatic pathology. Significant resolution of the abdominal ascites when compared to the previous study. A 2.2 cm nodule identified in the right adrenal gland; no interval change. The left adrenal gland is unremarkable. Double-J nephroureteral stent identified on the left side with moderate left-sided hydronephrosis. Benign cyst lower pole right kidney. No retroperitoneal lymphadenopathy. Copious amounts of retained stool identified within the colon. Circumferential wall thickening involving the rectum slice 149 series 2. Left inguinal hernia with the ascitic fluid as its content. IMPRESSION: 1. Significant resolution of the abdominal and pelvic ascites. 2. Circumferential wall thickening involving the rectum. 3. 2.2 cm nodule right adrenal gland; stable. 4. Cholelithiasis. 5. Possible low dense lesions in the spleen; further assessment is needed. 6. Double-J nephroureteral stent in the left kidney. 7. Left inguinal hernia. Please note that all CT scans at this facility use dose modulation, iterative reconstruction, and/or weight-based dosing when appropriate to reduce radiation dose to as low as reasonably achievable. Dictated by Pooja Ayala MD @ Mar 30 2019 4:37PM Signed by Dr. Pooja Ayala @ Mar 30 2019 4:45PM
--- NOTE | 2019-03-30 17:13 | PCM.SN ---
- Free Text/Narrative Note: I was asked to see Ismael regarding hypotension and anemia. He feels well at this time. He has chemo tomorrow in [place] and would like to attend that appointment. He is willing to receive a blood transfusion. He is interested in going home after the transfusion. His hgb is 6.2 today. His creatinine is up to 2.6 and GFR is down to 26 (usual about 2.0 and 35). these are likely due to hypovolemia. He did have recent hematuria after ureteral stenting but this has resolved. No hematochezia. I believe he is stable for outpatient management. He responded well to fluid challenge in the ER. He has follow up tomorrow morning. He will receive 1 unit of pRBC's this evening and then will be discharged. Ilir Boykin MD
== END 2019-03-30 17:30 | disposition home or self-care (01) ==
LOC: JP.ED 13:47 → JP.ICU 17:22 → JP.ED 17:30
DX: I95.9 Hypotension, unspecified (principal); D64.89 Other specified anemias; I10 Essential (primary) hypertension; J45.909 Unspecified asthma, uncomplicated; E11.9 Type 2 diabetes mellitus without complications; Z88.0 Allergy status to penicillin; Z79.899 Other long term (current) drug therapy; Z79.01 Long term (current) use of anticoagulants; Z79.4 Long term (current) use of insulin; Z86.718 Personal history of other venous thrombosis and embolism
CPT/HCPCS: 36415; 36430; 74176; 80048; 85025; 86850; 86900; 86901; 86920; 86922; 99285; J7030; P9016

== ENCOUNTER 2019-04-04 21:22 | Emergency (ER) | payer BC ==
[2019-04-04] MEDS ORDERED: Acetaminophen/HYDROcodone 108-2.5 MG/5 ML Soln 15 ML UD Cup PO ONE (22:17)
--- NOTE | 2019-04-04 22:23 | EDM.PDOC ---
ED HPI GENERAL MEDICAL PROBLEM - General Chief Complaint: Gastrointestinal Problem Stated Complaint: SORE THROAT HARD TIME SWALLING Time Seen by Provider: 04/04/19 22:10 Source of Information: Reports: Patient, Old Records, RN History Limitations: Reports: No Limitations - History of Present Illness INITIAL COMMENTS - FREE TEXT/NARRATIVE: 59 yo male on chemo for CA presents with onset yesterday of sore throat. Pain progressing so now it hurts to swallow a lot. No fever. No self tx. Was not seen in the clinic. No rash. Onset: Gradual Onset Date: 04/03/19 Duration: Day(s): (1+), Getting Worse Location: Reports: Neck (throat) Quality: Reports: Sharp (with swallowing) Severity: Moderate Improves with: Reports: None Worsens with: Reports: Other (time, swallowing) Context: Reports: Other (see HPI) Associated Symptoms: Reports: No Other Symptoms Treatments DROSSER: Reports: Other (see below) (none) Middle Throat Pain Score (Numeric/FACES): 8 - Related Data Allergies Allergy/AdvReac Type Severity Reaction Status Date / Time Penicillins Allergy Other Verified 03/30/19 13:56 Home Meds: Home Meds Albuterol [Ventolin HFA] 2 puff INH Q4HR PRN 03/09/18 [History] Bee Pollen 550 mg PO DAILY 03/09/18 [History] Multivitamin [Multi-Vitamin Daily] 1 each PO DAILY 03/09/18 [History] metFORMIN HCl [Metformin HCl] 1,000 mg PO BID 03/09/18 [History] Apixaban [Eliquis] 5 mg PO BID 01/24/19 [History] Cholecalciferol (Vitamin D3) [Vitamin D3] 10,000 unit PO DAILY 01/24/19 [History ] Gentamicin [Garamycin 0.3% Ophth Soln] 1 drop EYEBOTH Q4HR 01/24/19 [History] Insulin Glarg,Human.Rec.Analog [Lantus Solostar] 10 unit SQ BEDTIME 01/24/19 [ History] Loperamide [Imodium AD] 2 mg PO ASDIRECTED 01/24/19 [History] Magnesium Oxide 500 mg PO TID 01/24/19 [History] Mometasone/Formoterol [Dulera 200 MCG/5 MCG] 2 puff INH BID 01/24/19 [History] Prochlorperazine Maleate [Compazine] 10 mg PO QID PRN 01/24/19 [History] traMADol [Ultram] 50 mg PO Q6HR PRN 01/24/19 [History] Metoprolol Tartrate [Lopressor] 50 mg PO BID 02/14/19 [History] Acetaminophen/HYDROcodone [[place] 325-5 MG] 1 - 2 tab PO Q6H PRN 02/20/19 [ History] Zinc Gluconate [Zinc] 50 mg PO DAILY 02/23/19 [History] Hydrocodone/Acetaminophen [Hydrocodone-Acetamin 2.5-108/5] 10 ml PO Q4H PRN # 300 solution 04/04/19 [Rx] Nystatin 500,000 unit PO QID #120 ml 04/04/19 [Rx] Past Medical History HEENT History: Reports: Allergic Rhinitis Cardiovascular History: Reports: Blood Clots/VTE/DVT, Hypertension Respiratory History: Reports: Asthma Gastrointestinal History: Reports: Other (See Below) Other Gastrointestinal History: severe protein calorie malnutrition. 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 tendon rupture, nontraumatic, extensor Neurological History: Reports: Headaches, Chronic Endocrine/Metabolic History: Reports: Diabetes, Type II, Other (See Below) Other Endocrine/Metabolic History: dyslipidemia Hematologic History: Reports: Anticoagulation Therapy Immunologic History: Reports: Other (See Below) Other Immunologic History: chemo pt Oncologic (Cancer) History: Reports: Colon - Infectious Disease History Infectious Disease History: Reports: Other (See Below) Other Infectious Disease History: MSSA of right middle finger, amputated - Past Surgical History Male Surgical History: Reports: Other (See Below) Other Male Surgeries/Procedures: stent between bladder and kidney in February Musculoskeletal Surgical History: Reports: Amputation, Arthroscopic Knee, Other (See Below) Other Musculoskeletal Surgeries/Procedures:: right middle finger amputation Social & Family History - Tobacco Use Smoking Status *Q: Current Every Day Smoker Years of Tobacco use: 25 Packs/Tins Daily: 0 Used Tobacco, but Quit: Yes Month/Year Tobacco Last Used: 15 years ago - Caffeine Use Caffeine Use: Reports: Coffee, Soda Other Caffeine Use: 3 to 4 pops a day Caffeine Use Comment: once in a while coffee use. daily soda. - Recreational Drug Use Recreational Drug Use: No ED ROS ENT - Review of Systems Review Of Systems: See Below Constitutional: Reports: No Symptoms HEENT: Reports: Throat Pain. Denies: Rhinitis, Throat Swelling Respiratory: Reports: No Symptoms Cardiovascular: Reports: No Symptoms GI/Abdominal: Reports: No Symptoms Skin: Reports: No Symptoms ED EXAM, ENT - Physical Exam Exam: See Below Exam Limited By: No Limitations General Appearance: Alert, WD/WN, No Apparent Distress, Thin Eye Exam: Bilateral Eye: Other (pale conjunctivas) Ears: Normal External Exam, Normal Canal, Hearing Grossly Normal, Normal TMs Nose: Normal Inspection, No Blood Mouth/Throat: Normal Inspection, Normal Lips, Normal Oropharynx, Hoarse Voice, Pharyngeal Erythema, Throat Pain. No: Dental Abcess, Lip Swelling, Lip Ulcers, Muffled Voice, Tonsillar Erythema, Tonsillar Exudates, Tonsillar Swelling, Trismus, Uvular Deviation, Uvular Edema Head: Atraumatic, Normocephalic Neck: Normal Inspection, Non-Tender Respiratory/Chest: No Respiratory Distress, No Accessory Muscle Use Cardiovascular: Regular Rate, Rhythm, No Edema Neurological: Alert, Oriented, CN II-XII Intact, Normal Cognition, No Motor/ Sensory Deficits Psychiatric: Normal Affect, Normal Mood Skin: Warm, Dry, Intact, Normal Color, No Rash Lymphatic: No Adenopathy Course - Vital Signs Last Recorded V/S: Last Vital Signs Temp 35.4 C 04/04/19 22:04 Pulse 74 04/04/19 22:04 Resp 16 04/04/19 22:04 BP 116/78 04/04/19 22:04 Pulse Ox 95 04/04/19 22:04 - Orders/Labs/Meds Orders: Active Orders 24 hr Category Date Time Status CULTURE FUNGAL [MYC] Stat Lab 04/04/19 22:55 Ordered CULTURE THROAT [RM] Stat Lab 04/04/19 22:55 Ordered Labs: Laboratory Tests 04/04/19 04/04/19 Range/Units 22:25 22:25 WBC 4.0 L (4.5-11.0) K/uL RBC 3.22 L (4.30-5.90) M/uL Hgb 9.0 L D (12.0-15.0) g/dL Hct 28.7 L (40.0-54.0) % MCV 89 (80-98) fL MCH 28 (27-31) pg MCHC 31 L (32-36) % Plt Count 209 (150-400) K/uL Neut % (Auto) 90 H (36-66) % Lymph % (Auto) 10 L (24-44) % [place] % (Auto) 1 L (2-6) % Eos % (Auto) 0 L (2-4) % Baso % (Auto) 0 (0-1) % Glucose 266 H (74-106) mg/dL Meds: Medications Discontinued Medications Generic Name Dose Route Start Last Admin Trade Name Freq PRN Reason Stop Dose Admin Hydrocodone Bitart/Acetaminophen 30 ml 04/04/19 22:17 04/04/19 22:51 Acetaminophen/Hydrocodone 108-2.5 Mg/5 Ml PO 04/04/19 22:18 30 ml ONETIME ONE Administration Nystatin 15 ml 04/04/19 22:56 Mycostatin PO 04/04/19 22:57 ONETIME ONE Departure - Departure Time of Disposition: 23:05 Disposition: Home, Self-Care 01 Condition: Fair Clinical Impression: Throat pain in adult Anemia Qualifiers: Anemia type: unspecified type Qualified Code(s): D64.9 - Anemia, unspecified - Discharge Information *PRESCRIPTION DRUG MONITORING PROGRAM REVIEWED*: No *COPY OF PRESCRIPTION DRUG MONITORING REPORT IN PATIENT MARIAM: No Prescriptions: Hydrocodone/Acetaminophen [Hydrocodone-Acetamin 2.5-108/5] 10 ml PO Q4H PRN # 300 solution PRN Reason: Pain Nystatin 500,000 unit PO QID #120 ml Referrals: Elier Tamayo MD [Primary Care Provider] - Forms: ED Department Discharge Additional Instructions: Use Nystatin every 6 hrs. Use acetaminophen or acetaminophen with hydrocodone as directed for pain relief. Recheck with your doctor in 3 days. - My Orders Last 24 Hours: My Active Orders 04/04/19 22:55 CULTURE FUNGAL [MYC] Stat CULTURE THROAT [RM] Stat - Assessment/Plan Last 24 Hours: My Active Orders 04/04/19 22:55 CULTURE FUNGAL [MYC] Stat CULTURE THROAT [RM] Stat
[2019-04-04] MEDS ORDERED: Nystatin Susp 100,000 Unit/ML 5 ML UD Cup PO ONE (22:56)
== END 2019-04-04 23:07 | disposition home or self-care (01) ==
LOC: JP.ED 21:22
DX: R07.0 Pain in throat (principal); D64.9 Anemia, unspecified; I10 Essential (primary) hypertension; M19.90 Unspecified osteoarthritis, unspecified site; E11.9 Type 2 diabetes mellitus without complications; F17.200 Nicotine dependence, unspecified, uncomplicated; C18.9 Malignant neoplasm of colon, unspecified; Z79.4 Long term (current) use of insulin; Z79.899 Other long term (current) drug therapy; Z88.0 Allergy status to penicillin
CPT/HCPCS: 36415; 82947; 85025; 87070; 87102; 87205; 99283; A9270

== ENCOUNTER 2019-04-06 09:40 | Emergency (ER) | payer BC ==
[2019-04-06] MEDS ORDERED: Sodium Chloride 0.9% 1,000 ML IV SCH (10:45)
[2019-04-06] MEDS ORDERED: HYDROmorphone 0.5 MG/0.5 ML Syringe IVPUSH ONE ×3 (10:52→13:00)
--- NOTE | 2019-04-06 10:56 | EDM.PDOC ---
ED HPI GENERAL MEDICAL PROBLEM - General Chief Complaint: General Stated Complaint: SENT FROM CLINIC Time Seen by Provider: 04/06/19 09:40 Source of Information: Reports: Patient, Family History Limitations: Reports: No Limitations - History of Present Illness INITIAL COMMENTS - FREE TEXT/NARRATIVE: 59-year-old male with metastatic cancer, being treated with chemotherapy was seen 2 days ago with a sore throat and started on Sophy therapy. He continues to have a sore throat, has metastatic pain, feels weak and is not eating or drinking well so he went into the clinic to see if there was something that could be done and he was sent to the emergency room for a "thorough workup". Onset: Unknown/Unsure Associated Symptoms: Reports: Loss of Appetite, Malaise, Weakness, Other (Legs are painful, back hurts). Denies: Fever/Chills, Headaches Generalized Pain Score (Numeric/FACES): 5 - Related Data Allergies Allergy/AdvReac Type Severity Reaction Status Date / Time Penicillins Allergy Other Verified 04/06/19 10:00 Home Meds: Home Meds Albuterol [Ventolin HFA] 2 puff INH Q4HR PRN 03/09/18 [History] Bee Pollen 550 mg PO DAILY 03/09/18 [History] Multivitamin [Multi-Vitamin Daily] 1 each PO DAILY 03/09/18 [History] metFORMIN HCl [Metformin HCl] 1,000 mg PO BID 03/09/18 [History] Apixaban [Eliquis] 5 mg PO BID 01/24/19 [History] Cholecalciferol (Vitamin D3) [Vitamin D3] 10,000 unit PO DAILY 01/24/19 [History ] Gentamicin [Garamycin 0.3% Ophth Soln] 1 drop EYEBOTH Q4HR 01/24/19 [History] Insulin Glarg,Human.Rec.Analog [Lantus Solostar] 10 unit SQ BEDTIME 01/24/19 [ History] Loperamide [Imodium AD] 2 mg PO ASDIRECTED 01/24/19 [History] Magnesium Oxide 500 mg PO TID 01/24/19 [History] Mometasone/Formoterol [[place]era 200 MCG/5 MCG] 2 puff INH BID 01/24/19 [History] Prochlorperazine Maleate [Compazine] 10 mg PO QID PRN 01/24/19 [History] traMADol [Ultram] 50 mg PO Q6HR PRN 01/24/19 [History] Metoprolol Tartrate [Lopressor] 50 mg PO BID 02/14/19 [History] Acetaminophen/HYDROcodone [[place] 325-5 MG] 1 - 2 tab PO Q6H PRN 02/20/19 [ History] Zinc Gluconate [Zinc] 50 mg PO DAILY 02/23/19 [History] Hydrocodone/Acetaminophen [Hydrocodone-Acetamin 2.5-108/5] 10 ml PO Q4H PRN # 300 solution 04/04/19 [Rx] Nystatin 500,000 unit PO QID #120 ml 04/04/19 [Rx] Acetaminophen/Codeine [Tylenol/Codeine 120-12 MG/5 ML] 5 ml PO Q6H 04/06/19 [ History] Past Medical History HEENT History: Reports: Allergic Rhinitis Cardiovascular History: Reports: Blood Clots/VTE/DVT, Hypertension Respiratory History: Reports: Asthma Gastrointestinal History: Reports: Other (See Below) Other Gastrointestinal History: severe protein calorie malnutrition. 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 tendon rupture, nontraumatic, extensor Neurological History: Reports: Headaches, Chronic Endocrine/Metabolic History: Reports: Diabetes, Type II, Other (See Below) Other Endocrine/Metabolic History: dyslipidemia Hematologic History: Reports: Anticoagulation Therapy Immunologic History: Reports: Other (See Below) Other Immunologic History: chemo pt Oncologic (Cancer) History: Reports: Colon - Infectious Disease History Infectious Disease History: Reports: Other (See Below) Other Infectious Disease History: MSSA of right middle finger, amputated - Past Surgical History Male Surgical History: Reports: Other (See Below) Other Male Surgeries/Procedures: stent between bladder and kidney in February Musculoskeletal Surgical History: Reports: Amputation, Arthroscopic Knee, Other (See Below) Other Musculoskeletal Surgeries/Procedures:: right middle finger amputation Social & Family History - Caffeine Use Caffeine Use: Reports: None Other Caffeine Use: 3 to 4 pops a day Caffeine Use Comment: once in a while coffee use. daily soda. ED ROS GENERAL - Review of Systems Review Of Systems: See Below Constitutional: Denies: Fever, Chills HEENT: Reports: Throat Pain Respiratory: Denies: Shortness of Breath Cardiovascular: Denies: Chest Pain GI/Abdominal: Reports: Abdominal Pain, Nausea. Denies: Vomiting Musculoskeletal: Reports: Back Pain, Leg Pain Neurological: Reports: Weakness ED EXAM, GENERAL - Physical Exam Exam: See Below Exam Limited By: No Limitations General Appearance: Alert, No Apparent Distress Eye Exam: Bilateral Eye: EOMI Throat/Mouth: Other (Mild pharyngeal erythema, no other abnormality seen) Head: Atraumatic Neck: No: Lymphadenopathy (R), Lymphadenopathy (L) Respiratory/Chest: No Respiratory Distress, Lungs Clear Cardiovascular: Regular Rate, Rhythm GI/Abdominal: Soft, Tender Neurological: Alert, Oriented Psychiatric: Flat Affect Skin Exam: Warm, Dry Course - Vital Signs Last Recorded V/S: Last Vital Signs Temp 96.8 F 04/06/19 09:59 Pulse 95 04/06/19 09:59 Resp 20 04/06/19 09:59 BP 170/108 H 04/06/19 09:59 Pulse Ox 99 04/06/19 09:59 - Orders/Labs/Meds Labs: Laboratory Tests 04/06/19 04/06/19 04/06/19 Range/Units 10:40 10:40 11:32 WBC 7.2 (4.5-11.0) K/uL RBC 3.10 L (4.30-5.90) M/uL Hgb 8.9 L (12.0-15.0) g/dL Hct 27.3 L (40.0-54.0) % MCV 88 (80-98) fL MCH 29 (27-31) pg MCHC 33 (32-36) % Plt Count 124 L (150-400) K/uL Neut % (Auto) 91 H (36-66) % Lymph % (Auto) 7 L (24-44) % [place] % (Auto) 1 L (2-6) % Eos % (Auto) 1 L (2-4) % Baso % (Auto) 0 (0-1) % Sodium 136 L (140-148) mmol/L Potassium 4.6 (3.6-5.2) mmol/L Chloride 102 (100-108) mmol/L Carbon Dioxide 25 (21-32) mmol/L Anion Gap 13.6 (5.0-14.0) mmol/L BUN 28 H (7-18) mg/dL Creatinine 1.5 H (0.8-1.3) mg/dL Est Cr Clr Drug Dosing 48.80 mL/min Estimated GFR (MDRD) 48 L (>60) Glucose 242 H (74-106) mg/dL Calcium 9.3 (8.5-10.1) mg/dL Total Bilirubin 0.3 (0.2-1.0) mg/dL AST 21 (15-37) U/L ALT 17 (12-78) U/L Alkaline Phosphatase 108 (46-116) U/L Total Protein 6.2 L (6.4-8.2) g/dL Albumin 2.7 L (3.4-5.0) g/dL Globulin 3.5 (2.3-3.5) g/dL Albumin/Globulin Ratio 0.8 L (1.2-2.2) Urine Color Yellow (YELLOW) Urine Appearance Cloudy A (CLEAR) Urine pH 6.5 (5.0-8.0) Ur Specific [place] 1.015 (1.008-1.030) Urine Protein 30 H (NEGATIVE) mg/dL Urine Glucose (UA) Negative (NEGATIVE) mg/dL Urine Ketones Negative (NEGATIVE) mg/dL Urine Occult Blood Large H (NEGATIVE) Urine Nitrite Negative (NEGATIVE) Urine Bilirubin Negative (NEGATIVE) Urine Urobilinogen 0.2 (0.2-1.0) EU/dL Ur Leukocyte Esterase Negative (NEGATIVE) Urine RBC >100 H (0-5) Urine WBC 5-10 H (0-5) Ur Epithelial Cells Not seen Amorphous Sediment Not seen Urine Bacteria Not seen Urine Mucus Not seen Meds: Medications Discontinued Medications Generic Name Dose Route Start Last Admin Trade Name Freq PRN Reason Stop Dose Admin Heparin Sodium (Porcine) Confirm 04/06/19 12:58 04/06/19 13:13 Heparin Lock Flush 100 Units/Ml Administered 04/06/19 12:59 Not Given Dose 500 units .ROUTE .STK-MED ONE Heparin Sodium (Porcine) 5,000 units 04/06/19 13:11 04/06/19 13:14 Heparin Sodium SUBCUT 04/06/19 13:12 Not Given ONETIME ONE Heparin Sodium (Porcine) 500 units 04/06/19 13:14 04/06/19 13:14 Heparin Lock Flush 100 Units/Ml FLUSH 04/06/19 13:15 500 units ASDIRECTED ONE Administration Hydromorphone HCl 0.5 mg 04/06/19 10:52 04/06/19 11:00 Dilaudid IVPUSH 04/06/19 10:53 0.5 mg ONETIME ONE Administration Hydromorphone HCl 0.5 mg 04/06/19 13:00 04/06/19 13:12 Dilaudid IVPUSH 04/06/19 13:01 0.5 mg ONETIME ONE Administration Sodium Chloride 1,000 mls @ 500 mls/hr 04/06/19 10:45 04/06/19 10:49 Normal Saline IV 500 mls/hr ASDIRECTED IAN Administration - Re-Assessments/Exams Free Text/Narrative Re-Assessment/Exam: 04/06/19 10:56 An IV was started, patient was given 500 mL in normal saline an hour and 0.5 mg of IV Dilaudid. CBC CMP and UA were obtained. 04/06/19 12:15 CBC shows a stable hemoglobin, CMP shows stable renal function. UA has RBCs but no sign of infection. He was given 1000 mL of normal saline and discharged with a prescription for viscous lidocaine for his throat pain. He can return if not improving satisfactorily. Departure - Departure Time of Disposition: 13:45 Disposition: Home, Self-Care 01 Clinical Impression: Pharyngitis, Dehydration, mild, Metastatic adenocarcinoma - Discharge Information Instructions: Sore Throat Referrals: Elier Tamayo MD [Primary Care Provider] - Forms: ED Department Discharge Care Plan Goals: Continue your current medications, use the viscous lidocaine as directed to numb your throat so you can take your medicines, stay hydrated and eat better. Recheck if not improving satisfactorily over the next several days.
[2019-04-06] MEDS ORDERED: HYDROmorphone 1 MG/ML Syringe IM ONE (12:43)
[2019-04-06] MEDS ORDERED: Heparin Sodium 5,000 Units/ML Vial SUBCUT ONE (13:11)
== END 2019-04-06 13:45 | disposition home or self-care (01) ==
LOC: JP.ED 09:40
DX: J02.9 Acute pharyngitis, unspecified (principal); E86.0 Dehydration; C20 Malignant neoplasm of rectum; C79.9 Secondary malignant neoplasm of unspecified site; I10 Essential (primary) hypertension; E11.9 Type 2 diabetes mellitus without complications; J45.909 Unspecified asthma, uncomplicated; Z88.0 Allergy status to penicillin; Z79.51 Long term (current) use of inhaled steroids; Z79.4 Long term (current) use of insulin; Z86.718 Personal history of other venous thrombosis and embolism; Z79.01 Long term (current) use of anticoagulants
CPT/HCPCS: 36415; 80053; 81001; 85025; 96361; 96374; 96376; 99283; J1170; J1642; J7030

== ENCOUNTER 2019-04-08 00:54 | Emergency (ER) | payer BC ==
--- NOTE | 2019-04-08 01:06 | EDM.PDOC ---
ED HPI GENERAL MEDICAL PROBLEM - General Chief Complaint: Flank Pain Stated Complaint: RIB PAIN Time Seen by Provider: 04/08/19 01:05 Source of Information: Reports: Patient History Limitations: Reports: No Limitations - History of Present Illness INITIAL COMMENTS - FREE TEXT/NARRATIVE: pt has pain in his left rib cage area. Onset: Today, Other (pt has pain over the left rib cage area. He has not had a fall. ) Duration: Hour(s): Location: Reports: Chest, Abdomen Associated Symptoms: Reports: Chest Pain general body pain Pain Score (Numeric/FACES): 9 - Related Data Allergies Allergy/AdvReac Type Severity Reaction Status Date / Time Penicillins Allergy Other Verified 04/06/19 10:00 Home Meds: Home Meds Albuterol [Ventolin HFA] 2 puff INH Q4HR PRN 03/09/18 [History] Bee Pollen 550 mg PO DAILY 03/09/18 [History] Multivitamin [Multi-Vitamin Daily] 1 each PO DAILY 03/09/18 [History] metFORMIN HCl [Metformin HCl] 1,000 mg PO BID 03/09/18 [History] Apixaban [Eliquis] 5 mg PO BID 01/24/19 [History] Cholecalciferol (Vitamin D3) [Vitamin D3] 10,000 unit PO DAILY 01/24/19 [History ] Gentamicin [Garamycin 0.3% Ophth Soln] 1 drop EYEBOTH Q4HR 01/24/19 [History] Insulin Glarg,Human.Rec.Analog [Lantus Solostar] 10 unit SQ BEDTIME 01/24/19 [ History] Loperamide [Imodium AD] 2 mg PO ASDIRECTED 01/24/19 [History] Magnesium Oxide 500 mg PO TID 01/24/19 [History] Mometasone/Formoterol [Dulera 200 MCG/5 MCG] 2 puff INH BID 01/24/19 [History] Prochlorperazine Maleate [Compazine] 10 mg PO QID PRN 01/24/19 [History] traMADol [Ultram] 50 mg PO Q6HR PRN 01/24/19 [History] Metoprolol Tartrate [Lopressor] 50 mg PO BID 02/14/19 [History] Acetaminophen/HYDROcodone [[place] 325-5 MG] 1 - 2 tab PO Q6H PRN 02/20/19 [ History] Zinc Gluconate [Zinc] 50 mg PO DAILY 02/23/19 [History] Hydrocodone/Acetaminophen [Hydrocodone-Acetamin 2.5-108/5] 10 ml PO Q4H PRN # 300 solution 04/04/19 [Rx] Nystatin 500,000 unit PO QID #120 ml 04/04/19 [Rx] Acetaminophen/Codeine [Tylenol/Codeine 120-12 MG/5 ML] 5 ml PO Q6H 04/06/19 [ History] Past Medical History HEENT History: Reports: Allergic Rhinitis Cardiovascular History: Reports: Blood Clots/VTE/DVT, Hypertension Respiratory History: Reports: Asthma Gastrointestinal History: Reports: Other (See Below) Other Gastrointestinal History: severe protein calorie malnutrition. 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 tendon rupture, nontraumatic, extensor Neurological History: Reports: Headaches, Chronic Endocrine/Metabolic History: Reports: Diabetes, Type II, Other (See Below) Other Endocrine/Metabolic History: dyslipidemia Hematologic History: Reports: Anticoagulation Therapy Immunologic History: Reports: Other (See Below) Other Immunologic History: chemo pt Oncologic (Cancer) History: Reports: Colon - Infectious Disease History Infectious Disease History: Reports: Other (See Below) Other Infectious Disease History: MSSA of right middle finger, amputated - Past Surgical History Male Surgical History: Reports: Other (See Below) Other Male Surgeries/Procedures: stent between bladder and kidney in February Musculoskeletal Surgical History: Reports: Amputation, Arthroscopic Knee, Other (See Below) Other Musculoskeletal Surgeries/Procedures:: right middle finger amputation Social & Family History - Caffeine Use Caffeine Use: Reports: None Other Caffeine Use: 3 to 4 pops a day Caffeine Use Comment: once in a while coffee use. daily soda. ED ROS GENERAL - Review of Systems Review Of Systems: See Below Constitutional: Reports: No Symptoms HEENT: Reports: No Symptoms Respiratory: Reports: Pleuritic Chest Pain, Other (pt has pain over the left chest. ) Cardiovascular: Reports: No Symptoms Endocrine: Reports: No Symptoms GI/Abdominal: Reports: No Symptoms : Reports: No Symptoms Musculoskeletal: Reports: No Symptoms ED EXAM, GI/ABD - Physical Exam Exam: See Below Text/Narrative:: pt arrived with acute pain in the left upper abdoman. This came on quite suddenly tonight. He was much more uncomfortable than usual. He hurt when he moved and when he took a deep breath. He was not sob. Exam Limited By: No Limitations General Appearance: Alert, Anxious, Moderate Distress Ears: Normal TMs Nose: Normal Inspection Throat/Mouth: Normal Inspection Head: Atraumatic Neck: Normal Inspection Respiratory/Chest: No Respiratory Distress Cardiovascular: Regular Rate, Rhythm GI/Abdominal Exam: Guarding, Tender, Other (pt is very uncomfortable in the left upper abdoman and lower ribcage area. ) (Male) Exam: Deferred Rectal (Males) Exam: Deferred Back Exam: Normal Inspection Extremities: Normal Inspection Neurological: Alert, Oriented, Normal Cognition Psychiatric: Normal Affect Course - Vital Signs Last Recorded V/S: Last Vital Signs Temp 36.3 C 04/08/19 04:31 Pulse 76 04/08/19 04:31 Resp 16 04/08/19 04:31 BP 111/77 04/08/19 04:31 Pulse Ox 96 04/08/19 04:31 - Orders/Labs/Meds Labs: Laboratory Tests 04/08/19 04/08/19 04/08/19 Range/Units 01:12 01:12 02:58 WBC 4.3 L (4.5-11.0) K/uL RBC 3.07 L (4.30-5.90) M/uL Hgb 8.7 L (12.0-15.0) g/dL Hct 27.1 L (40.0-54.0) % MCV 88 (80-98) fL MCH 28 (27-31) pg MCHC 32 (32-36) % Plt Count 89 L (150-400) K/uL Neut % (Auto) 74 H (36-66) % Lymph % (Auto) 11 L (24-44) % [place] % (Auto) 2 (2-6) % Eos % (Auto) 12 H (2-4) % Baso % (Auto) 0 (0-1) % Sodium 136 L (140-148) mmol/L Potassium 4.8 (3.6-5.2) mmol/L Chloride 102 (100-108) mmol/L Carbon Dioxide 25 (21-32) mmol/L Anion Gap 13.8 (5.0-14.0) mmol/L BUN 27 H (7-18) mg/dL Creatinine 1.6 H (0.8-1.3) mg/dL Est Cr Clr Drug Dosing 47.62 mL/min Estimated GFR (MDRD) 45 L (>60) Glucose 213 H (74-106) mg/dL Calcium 9.0 (8.5-10.1) mg/dL Total Bilirubin 0.3 (0.2-1.0) mg/dL AST 20 (15-37) U/L ALT 17 (12-78) U/L Alkaline Phosphatase 104 (46-116) U/L Total Protein 6.1 L (6.4-8.2) g/dL Albumin 2.7 L (3.4-5.0) g/dL Globulin 3.4 (2.3-3.5) g/dL Albumin/Globulin Ratio 0.8 L (1.2-2.2) Urine Color Brown A (YELLOW) Urine Appearance Turbid A (CLEAR) Urine pH 6.0 (5.0-8.0) Ur Specific [place] 1.020 (1.008-1.030) Urine Protein 30 H (NEGATIVE) mg/dL Urine Glucose (UA) Normal (NEGATIVE) mg/dL Urine Ketones Negative (NEGATIVE) mg/dL Urine Occult Blood Moderate H (NEGATIVE) Urine Nitrite Negative (NEGATIVE) Urine Bilirubin Negative (NEGATIVE) Urine Urobilinogen 0.2 (0.2-1.0) EU/dL Ur Leukocyte Esterase Negative (NEGATIVE) Urine RBC Packed H (0-5) Urine WBC 0-5 (0-5) Ur Epithelial Cells Rare Amorphous Sediment Not seen Urine Bacteria Rare Urine Mucus Not seen Meds: Medications Discontinued Medications Generic Name Dose Route Start Last Admin Trade Name Freq PRN Reason Stop Dose Admin Hydrocodone Bitart/Acetaminophen 15 ml 04/08/19 02:48 04/08/19 02:56 Acetaminophen/Hydrocodone 108-2.5 Mg/5 Ml PO 04/08/19 02:49 15 ml ONETIME ONE Administration Hydromorphone HCl 0.5 mg 04/08/19 01:43 04/08/19 01:53 Dilaudid IM 04/08/19 01:44 0.5 mg ONETIME ONE Administration Hydromorphone HCl 0.5 mg 04/08/19 03:46 Dilaudid IVPUSH 04/08/19 03:47 ONETIME ONE Hydromorphone HCl 1 mg 04/08/19 03:47 04/08/19 04:03 Dilaudid IVPUSH 04/08/19 03:48 1 mg ONETIME ONE Administration Sodium Chloride 1,000 mls @ 999 mls/hr 04/08/19 03:45 04/08/19 04:04 Normal Saline IV 999 mls/hr ASDIRECTED IAN Administration - Re-Assessments/Exams Free Text/Narrative Re-Assessment/Exam: 04/08/19 03:34 pt arrived with a history of rectal ca. He had recent renal stents placed on the left for sig hydronepnosis. He developed acute lower left chest and left upper abdomanal pain tonight. 04/08/19 03:36 a cat scan was obtained of the l chest and upper abdoman without contrast. which showed the persistent lesion in the spleen. The difference tonight is that he has air in the lesion. This could be a infarction or could be a infection or abcess. 04/08/19 03:42 04/20/19 07:21 04/20/19 07:22 Departure - Departure Time of Disposition: 03:43 Disposition: Home, Self-Care 01 Condition: Fair Clinical Impression: Splenic lesion, Abscess of spleen, Rectal cancer - Discharge Information Referrals: Elier Tamayo MD [Primary Care Provider] - Forms: ED Department Discharge Care Plan Goals: transfer to [facility].
--- NOTE | 2019-04-08 01:36 | CRLCR ---
INDICATION: Chest pain with deep breathing TECHNIQUE: Chest radiograph 1 view COMPARISON: None FINDINGS: Mediastinum: The mediastinum is normal in appearance. The heart silhouette is normal in size and morphology. Right Port-A-Cath is noted with the tip in the cavoatrial region. Lung: Small lung volumes are present with mild bibasilar subsegmental atelectasis seen. No sign of pleural effusion seen. No pneumothorax is identified. IMPRESSION: 1. Small lung volumes are present with mild bibasilar subsegmental atelectasis seen. Dictated by Amauri Starr MD @ 04/08/2019 1:34:26 AM Dictated by: Amauri Starr MD @ 04/08/2019 01:34:28 (Electronically Signed)
[2019-04-08] MEDS ORDERED: HYDROmorphone 0.5 MG/0.5 ML Syringe IM ONE (01:43)
[2019-04-08] MEDS ORDERED: Acetaminophen/HYDROcodone 108-2.5 MG/5 ML Soln 15 ML UD Cup PO ONE (02:48)
--- NOTE | 2019-04-08 03:01 | CRLCT ---
INDICATION: Left chest pain from fall. History of colon cancer TECHNIQUE: CT chest without i.v. contrast. Coronal and sagittal reformats were obtained. COMPARISON: 03/30/2019 FINDINGS: Cardiovascular: Moderate anemia is present with the cardiac chambers appearing lucent with respect to the myocardium. The pulmonary arteries are unremarkable in appearance. No sign of aneurysm seen in the thoracic aorta. The presence of aortic dissection cannot be evaluated without the use of intravenous contrast. Right Port-A-Cath noted. Mediastinum: No mass or adenopathy seen. Lung: Left basilar discoid and passive atelectasis present. Mild centrilobular emphysema is present bilaterally. A small irregular density is present at the posterior right apex on image 18, abutting the major fissure. This may represent a small focus of scarring. Pleura and pericardium: Trace left pleural effusion is present. No significant pericardial effusion is present. Chest wall and axilla: No mass or adenopathy seen. Bone: Unremarkable for age. Upper abdomen: The low-density lesion in the anterior spleen is again noted measuring 7 x 4.5 cm with interval development of internal gas. There is a low-density lesion in the right kidney that is partially visualized measuring 5.4 cm. A left ureteral stent is partially seen. Several tiny gallstones are seen in the gallbladder. There is a 1.8 cm right adrenal nodule present or interval change. IMPRESSIONS: 1. The low-density lesion in the anterior spleen is again noted measuring 7 x 4.5 cm with interval development of internal gas. Findings may be due to necrosis associated from splenic infarction or abscess. 2. There is a 1.8 cm right adrenal nodule present or interval change. 3. Left basilar discoid and passive atelectasis present. Dictated by Amauri Starr MD @ 04/08/2019 3:00:03 AM Please note that all CT scans at this facility use dose modulation, iterative reconstruction, and/or weight-based dosing when appropriate to reduce radiation dose to as low as reasonably achievable. Dictated by: Amauri Starr MD @ 04/08/2019 03:00:40 (Electronically Signed)
--- NOTE | 2019-04-08 03:15 | CRLCR ---
INDICATION: Left flank pain. History of renal failure colorectal cancer TECHNIQUE: Abdominal radiograph 3 view COMPARISON: None FINDINGS: Bowel: Air-filled mildly distended small bowel loops are present in the right flank measuring 2.8 cm. A moderate amount of stool is seen throughout the colon. A left double-J ureteral stent is present in expected positioning. Soft tissue: No evidence of pneumoperitoneum present. No suspicious calcifications noted. Bone: Unremarkable for age. IMPRESSION: 1. Air-filled mildly distended small bowel loops are present in the right flank measuring 2.8 cm. A moderate amount of stool is seen throughout the colon. Clinical follow-up is recommended to distinguish between ileus or early small bowel obstruction. Dictated by Amauri Starr MD @ 04/08/2019 3:14:23 AM Dictated by: Amauri Starr MD @ 04/08/2019 03:14:29 (Electronically Signed)
[2019-04-08] MEDS ORDERED: Sodium Chloride 0.9% 1,000 ML IV SCH (03:45)
[2019-04-08] MEDS ORDERED: HYDROmorphone 0.5 MG/0.5 ML Syringe IVPUSH ONE (03:46)
[2019-04-08] MEDS ORDERED: HYDROmorphone 1 MG/ML Syringe IVPUSH ONE (03:47)
== END 2019-04-08 04:46 | disposition home or self-care (01) ==
LOC: JP.ED 00:54
DX: D73.3 Abscess of spleen (principal); Z88.0 Allergy status to penicillin; C20 Malignant neoplasm of rectum; I10 Essential (primary) hypertension; J45.909 Unspecified asthma, uncomplicated; E11.9 Type 2 diabetes mellitus without complications; Z79.899 Other long term (current) drug therapy; Z79.01 Long term (current) use of anticoagulants; Z79.4 Long term (current) use of insulin; Z86.718 Personal history of other venous thrombosis and embolism
CPT/HCPCS: 36415; 71045; 71250; 74018; 80053; 81001; 85025; 87040; 87077; 93005; 96361; 96372; 96374; 99284; A9270; J1170; J7030